=== PATIENT | female | born 2000 | race Caucasian/White ===

== ENCOUNTER 2019-10-13 18:01 | Inpatient (IN) | payer OTHER ==
[~2019-10-13 18:01] MED LIST: Iopamidol-370 76% 500 ML 1 ML ONE
[2019-10-13] MEDS ORDERED: Ondansetron ODT 4 MG TAB ONE (18:49)
[2019-10-13] MEDS ORDERED: Acetaminophen 500 MG TAB ONE (18:49)
[2019-10-13] MEDS ORDERED: Lorazepam 2 MG/ML VIAL ONE ×5 (18:52→21:55)
[2019-10-13] MEDS ORDERED: Rocuronium Bromide 10 MG/ML (10ML VIAL) ONE (19:12)
[2019-10-13] MEDS ORDERED: PROPOFOL 20 ML ONE (19:12)
[2019-10-13] MEDS ORDERED: Propofol 1,000 MG/100 ML VIAL IV ONE ×2 (19:30→23:16)
[2019-10-13] MEDS ORDERED: Fentanyl 100 MCG/2 ML VIAL ONE ×2 (19:31→20:39)
[2019-10-13] MEDS ORDERED: cefTRIAXone\\ROCEPHIN 2 GM VIAL ONE (20:19)
[2019-10-13] MEDS ORDERED: Vancomycin 1 GM/200 ML BAG ONE (20:19)
--- NOTE | 2019-10-13 20:41 | RAD ---
CHEST ONE VIEW: 10/13/19 HISTORY: Status post ET tube placement. FINDINGS: Portable supine chest demonstrates endotracheal tube at the level of the clavicles. Nasogastric tube terminates in the stomach. Normal cardiac silhouette. Pulmonary vessels and hilum are normal. Diminished lung volumes with accen tuation of the lung parenchyma. No pneumothorax on this supine projection. No consolidation or anay s. No osseous abnormalities. IMPRESSION: 1. Endotracheal and nasogastric tube as described above. 2. Hypoventilation with accentuation of lung parenchyma. Consider repeat chest radiograph with b bianca inspiration/ventilation. POS: PPP
[2019-10-13] MEDS ORDERED: Midazolam HCl 2 mg/2 ml Vial ONE (21:02)
[2019-10-13] MEDS ORDERED: fentaNYL Citrate/PF 2,000 MCG in Sodium Chloride 0.9% 60 ML IV SCH (22:15)
[2019-10-13 22:16] LABS: Anion Gap 11 mmol/L (10-20); Carbon Dioxide 24 mmol/L (22-29); Chloride 96 mmol/L (98-107); Potassium 3.8 mmol/L (3.5-5.1); Sodium 127 mmol/L (136-145)
[2019-10-13 22:17] LABS: BUN (Urea Nitrogen) 8 mg/dL (7.0-18.7); Calc. Creatinine Clearance 0 mL/min (70-130); Calcium 9.3 mg/dL (7.8-10.44); Estimated GFR-MDRD Greater than 90; Glucose 100 mg/dL (70-105)
[2019-10-13 22:42] LABS: Pregnancy Test - Urine (BHCG) Negative (Negative); Pregu Control Background? CLEAR/WHITE (CLR/WHITE); Pregu Control Bar Appear? YES (CONTROL BAR); Specific Gravity 1.025 (1.002-1.036)
[2019-10-13 22:43] LABS: Bacteria/HPF None Seen HPF (None Seen); Bilirubin Negative (Negative); Blood, Urine Trace (Negative); Clarity Clear (Clear); Glucose, Urine (Dipstick) Negative (Negative); Ketone, Urine Negative (Negative); Leukocyte Negative Leu/uL (Negative); Nitrite Negative (Negative); Protein, Urine (Dipstick) Negative (Neg-Trace); RBC/HPF 0-3 HPF (0-3); Specific Gravity, Urine 1.025 (1.002-1.036); Squamous Epithelial 0-3 HPF (0-3); Urobilinogen 0.2 mg/dL (Less than 2); WBC/HPF None Seen HPF (0-3); pH, Urine 6.5 (5.0-9.0)
[2019-10-13 23:03] LABS: #Basophils 0.1 thou/uL (0.0-0.2); #Eosinphils 0.2 thou/uL (0.0-0.7); #Lymphocytes 2.4 thou/uL (1.20-3.40); #Monocytes 0.5 thou/uL (0.11-0.59); #Neutrophils 3.9 thou/uL (1.40-6.50); %Basophils 1.2 % (0.0-1.0); %Eosinophils 3.3 % (0.0-10.0); %Lymphocytes 33.3 % (28.0-48.0); %Monocytes 7.2 % (0.0-4.0); %Neutrophils 55.1 % (31.0-61.0); Hemoglobin 11.3 g/dL (12.0-16.0); Mean Corpuscular HGB CONC 33.8 g/dL (32.0-36.0); Mean Corpuscular Hemoglobin 27.1 pg (25.0-35.0); Mean Corpuscular Volume 80.2 fL (78.0-98.0); Mean Platelet Volume 6.8 fL (7.4-10.4); Platelet Count 306 thou/uL (130-400); RBC Distribution Width 13.5 % (11.5-14.5); Red Blood Cell (RBC) Count 4.16 mill/uL (4.00-5.20); White Blood Cell (WBC) Count 7.1 thou/uL (4.8-10.8)
[2019-10-13 23:57] LABS: Actual Bicarbonate (HCO3a) 18.1 mEq/L (22-28); Analyzer IN Cardio ER; Base Excess (BEa) -3.6 mEq/L (-2.0 to +3.0); Calcium, Ionized (arterial) 1.11 mmol/L (1.12-1.30); Carboxyhemoglobin (COHb) 0.3 gm% (0.0-3.0); Hemoglobin (Hb) 10.8 g/dL (11.4-15.4); O2 Tension (PaO2), arterial 137.7 mmHg (80.0-100.0); Potassium - ABG Lab 3.57 mmol/L (3.70-5.30); pH, Arterial 7.51 (7.35-7.45)
[2019-10-13 23:58] LABS: CO2 Tension 23.2 mmHg (35.0-45.0); Puncture Site RRA
[2019-10-14] MEDS ORDERED: Propofol BOLUS 1,000 MG/100 ML VIAL IV PRN (00:52)
[2019-10-14] MEDS ORDERED: Morphine 2 MG/ML VIAL SLOW IVP PRN (00:52)
[2019-10-14] MEDS ORDERED: Fentanyl BOLUS 250 ML IVPB PRN (00:52)
[2019-10-14] MEDS ORDERED: DISCONTINUE PREVIOUS NARCOTIC PAIN MEDICATIONS AND BENZODIAZEPINES FS SCH (00:52)
[2019-10-14] MEDS ORDERED: Ondansetron ODT 4 MG TAB SL PRN (00:54)
[2019-10-14] MEDS ORDERED: Ondansetron PF 4 MG/2 ML Vial IVP PRN ×2 (00:54→00:59)
[2019-10-14] MEDS ORDERED: Labetalol HCl 100 MG/20 ML VIAL SLOW IVP PRN (00:59)
[2019-10-14] MEDS ORDERED: hydrALAZINE 20 MG/ML VIAL SLOW IVP PRN (00:59)
[2019-10-14] MEDS ORDERED: Promethazine HCl 12.5 MG in Sodium Chloride 0.9% 50 ML IVPB PRN (00:59)
[2019-10-14] MEDS ORDERED: Albuterol 200 PUFF (6.7GM INHALER) INH PRN (00:59)
[2019-10-14] MEDS: Lorazepam 2 MG/ML VIAL SLOW IVP PRN ×4 (00:59→20:06)
[2019-10-14] MEDS ORDERED: Electrolyte Replacement Protoc 1 EACH EACH IVPB ONE (01:00)
[2019-10-14] MEDS ORDERED: Ventilator Sedation Protocol 1 EACH FS SCH (01:00)
[2019-10-14] MEDS ORDERED: Insulin Regular 300 UNITS/3 ML VIAL SC PRN (01:00)
--- NOTE | 2019-10-14 01:11 | PDOC.HHP ---
Hospitalist HPI - History of Present Illness Seizure, status epilepticus History of Present Illness: Patient is a 19 year old female with PMH seizure disorder who presented to ED for R flank pain x 1.5 weeks, inability to urinate x 16 hours, pain was in R lower back, constant. The pain had reportedly worsened for 3 days before presentation with Tmax 101. She has seizure disorder on keppra, trileptal. She had a seizure 1 hour before arrival to ED, last seizure before that was a month or so. In the ED, she had 4 witnessed tonic clonic seizures, recieved 3mg ativan and 2g keppra, broad spectrum antibiotics, required intubation for status epilepticus, Dr Araujo consulted and recommended EEG, patient with Na 127 improved to 129, ABG w/ respiratory alkalosis. UA without obvious infection. CT A/P and CT head performed, CT head reportedly without acute findings however final reports pending, patient to be admitted to CCU for further workup and care. Hospitalist ROS - Review of Systems ROS unobtainable: due to endotracheal tube - Medication Medications: Active Medications Generic Name Dose Route Start Last Admin Trade Name Freq PRN Reason Stop Dose Admin Lorazepam 2 mg 10/14/19 00:52 10/14/19 00:59 Ativan SLOW IVP 11/13/19 00:52 2 mg Q1H PRN Administration Breakthrough agitation OXcarbazepine WedOct 13, 2019 22:24 ETELVINA Grayson Jordan tablet : Strength - 300 mg : ORAL Patient Dose: 3 tab(s) Oral 2 times a day. traZODone WedOct 13, 2019 22:26 ETELVINA Grayson Jordan tablet : Strength - 50 mg : ORAL Patient Dose: 1 tab(s) Oral once a day (at bedtime). NEEDED. levETIRAcetam oral WedOct 13, 2019 22:26 ETELVINA Grayson Jordan tablet : Strength - 500 mg : ORAL Patient Dose: 1 tab(s) Oral 2 times a day. atenolol WedOct 13, 2019 22:27 ETELVINA Grayson Jordan tablet : Strength - 25 mg : ORAL Patient Dose: 1 tab(s) Oral once a day (at bedtime). QUEtiapine WedOct 13, 2019 22:29 ETELVINA Grayson Jordan tablet : Strength - 25 mg : ORAL Patient Dose: 1 tab(s) Oral once a day (at bedtime). Cartia XT WedOct 13, 2019 22:30 ETELVINA Grayson Jordan capsule,extended release 24hr : Strength - 120 mg : ORAL Patient Dose: 1 cap(s) Oral once a day. sertraline WedOct 13, 2019 22:30 ETELVINA Grayson Jordan tablet : Strength - 50 mg : ORAL Patient Dose: 1 tab(s) Oral once a day. cephALEXin WedOct 13, 2019 22:31 ETELVINA Grayson Jordan capsule : Strength - 500 mg : ORAL Patient Dose: 1 cap(s) Oral 3 times a day. Hospitalist History - Past Medical History Other Medical History: SVT, seizure - Past Surgical History Other Surgical History: cyst removal - Family History Family History: reports: no pertinent history - Social History Smoking Status: Never smoker Alcohol: reports: None Drugs: reports: none - Exam General - other findings: intubated Eye: PERRL, anicteric sclera ENT: normocephalic atraumatic, no oropharyngeal lesions, moist mucosa Neck: supple, symmetric, no JVD, no thyromegaly, no lymphadenopathy, no carotid bruit Heart: RRR, no murmur, no gallops, no rubs, normal peripheral pulses Respiratory: CTAB, no wheezes, no rales, no ronchi, normal chest expansion, no tachypnea, normal percussion Gastrointestinal: soft, non-tender, non-distended, normal bowel sounds, no palpable masses, no hepatomegaly, no splenomegaly, no bruit Extremities: no cyanosis, no clubbing, no edema Skin: normal turgor, no lesions, no rashes Neurological: cranial nerve grossly intact, no focal deficits Neurological - other findings: intubated, sedated, no current seizure activity, rass -2 Musculoskeletal: normal tone, normal strength, no muscle wasting Psychiatric - other findings: unable to evaluate Hospitalist Results - Labs Result Diagrams: 10/13/19 18:50 10/13/19 18:50 Lab results: WBC 7.1 thou/uL (4.8-10.8) 10/13/19 18:50 Hgb 11.3 g/dL (12.0-16.0) L 10/13/19 18:50 Hct 33.3 % (36.0-47.0) L 10/13/19 18:50 MCV 80.2 fL (78.0-98.0) 10/13/19 18:50 Plt Count 306 thou/uL (130-400) 10/13/19 18:50 Neutrophils % 55.1 % (31.0-61.0) 10/13/19 18:50 ABG pH 7.51 (7.35-7.45) H 10/13/19 20:10 ABG pCO2 23.2 mmHg (35.0-45.0) L* 10/13/19 20:10 ABG pO2 137.7 mmHg (80.0-100.0) H 10/13/19 20:10 Sodium 127 mmol/L (136-145) L 10/13/19 18:50 Potassium 3.8 mmol/L (3.5-5.1) 10/13/19 18:50 Chloride 96 mmol/L (98-107) L 10/13/19 18:50 Carbon Dioxide 24 mmol/L (22-29) 10/13/19 18:50 BUN 8 mg/dL (7.0-18.7) 10/13/19 18:50 Creatinine 0.75 mg/dL (0.6-1.1) 10/13/19 18:50 Glucose 100 mg/dL (70-105) 10/13/19 18:50 Lactic Acid 0.9 mmol/L (0.5-2.2) 10/13/19 18:50 Calcium 9.3 mg/dL (7.8-10.44) 10/13/19 18:50 Urine Ketones Negative mg/dL (Negative) 10/13/19 21:30 Urine Blood Trace (Negative) A 10/13/19 21:30 Urine Nitrite Negative (Negative) 10/13/19 21:30 Ur Leukocyte Esterase Negative Amor/uL (Negative) 10/13/19 21:30 Urine RBC 0-3 HPF (0-3) 10/13/19 21:30 Urine WBC None Seen HPF (0-3) 10/13/19 21:30 Ur Squamous Epith Cells 0-3 HPF (0-3) 10/13/19 21:30 Urine Bacteria None Seen HPF (None Seen) 10/13/19 21:30 Additional comment: VITAL SIGNS WedOct 13, 2019 23:35 ETELVINA Grayson Jordan BP: 138/85 MAP: 102 Pulse: 89 Resp: 22 Pain: UTR O2 sat: 100 on (Ventilator) End-Tidal CO2: 34 Time: 10/13/2019 23:35. Hospitalist H&P A/P - Plan Plan: Patient is a 19 year old female with PMH seizure disorder who presented to ED for R flank pain x 1.5 weeks, inability to urinate x 16 hours, pain was in R lower back, constant. The pain had reportedly worsened for 3 days before presentation with Tmax 101. She has seizure disorder on keppra, trileptal. She had a seizure 1 hour before arrival to ED, last seizure before that was a month or so. In the ED, she had 4 witnessed tonic clonic seizures, recieved 3mg ativan and 2g keppra, broad spectrum antibiotics, required intubation for status epilepticus, Dr Araujo consulted and recommended EEG, patient with Na 127 improved to 129, ABG w/ respiratory alkalosis. UA without obvious infection. CT A/P and CT head performed, CT head reportedly without acute findings however final reports pending, patient to be admitted to CCU for further workup and care. # status epilepticus - admit to CCU, continue keppra IV, PRN ativan, seizure precautions, sedation protocol, consult pulmonary and neurology # flank pain - follow CT A/P final read and cultures, continue empiric vancomycin and zosyn # hyponatremia - improved already from 127 to 129, will continue to trend and continue IVF, consider nephrology consult if correcting too fast or slow. DVT/GI ppx
[2019-10-14] MEDS ORDERED: Electrolyte Replacement Protocol FS PRN (01:15)
[2019-10-14] MEDS: Sodium Chloride 0.9% 1,000 ML IV SCH ×2 (01:46→12:49)
[2019-10-14] MEDS: Propofol 1,000 MG/100 ML VIAL IV PRN ×6 (02:45→23:00)
[2019-10-14 03:56] LABS: #Eosinphils 0.1 thou/uL (0.0-0.7); #Lymphocytes 1.7 thou/uL (1.20-3.40); #Monocytes 0.5 thou/uL (0.11-0.59); #Neutrophils 3.8 thou/uL (1.40-6.50); %Basophils 0.2 % (0.0-1.0); %Eosinophils 1.6 % (0.0-10.0); %Lymphocytes 28.6 % (28.0-48.0); %Monocytes 7.4 % (0.0-4.0); %Neutrophils 62.2 % (31.0-61.0); Hemoglobin 10.7 g/dL (12.0-16.0); Mean Corpuscular HGB CONC 33.4 g/dL (32.0-36.0); Mean Corpuscular Hemoglobin 26.6 pg (25.0-35.0); Mean Corpuscular Volume 79.8 fL (78.0-98.0); Mean Platelet Volume 7.1 fL (7.4-10.4); Platelet Count 297 thou/uL (130-400); RBC Distribution Width 13.4 % (11.5-14.5); Red Blood Cell (RBC) Count 4.02 mill/uL (4.00-5.20); White Blood Cell (WBC) Count 6.1 thou/uL (4.8-10.8)
[2019-10-14] MEDS: Piperacillin/Tazobactam 3.375 GM in Sodium Chloride 0.9% 100 ML IVPB SCH ×4 (04:02→21:05)
[2019-10-14] MEDS: Vancomycin HCl 1.25 GM in Sodium Chloride 0.9% 250 ML 250 ML IVPB SCH ×2 (04:03→12:33)
[2019-10-14 05:50] LABS: Chloride 104 mmol/L (98-107); Potassium 3.9 mmol/L (3.5-5.1); Sodium 132 mmol/L (136-145)
[2019-10-14 05:51] LABS: Calcium 9.3 mg/dL (7.8-10.44); Glucose 107 mg/dL (70-105)
[2019-10-14 05:53] LABS: Anion Gap 15 mmol/L (10-20); Carbon Dioxide 17 mmol/L (22-29)
[2019-10-14 05:55] LABS: BUN (Urea Nitrogen) 4 mg/dL (7.0-18.7); Calc. Creatinine Clearance 201 mL/min (70-130); Estimated GFR-MDRD Greater than 90
[2019-10-14 05:57] LABS: Magnesium 2.2 mg/dL (1.7-2.2)
--- NOTE | 2019-10-14 08:54 | CT ---
CT BRAIN: Date: 10/13/2019 PROVIDED CLINICAL HISTORY: Status epilepticus. FINDINGS: No comparisons. The ventricular system appears normal in size and morphology. There is no evidence for intracranial h emorrhage or mass effect. The extracranial soft tissues and osseous structures demonstrate an unremar kable CT appearance. IMPRESSION: No evidence for intracranial hemorrhage or mass effect. POS: DONNIE
--- NOTE | 2019-10-14 08:59 | CT ---
CT ABDOMEN AND PELVIS WITH IV CONTRAST: Date: 10/13/2019 PROVIDED CLINICAL HISTORY: Right flank pain. FINDINGS: There are subsegmental atelectatic changes seen at each lung base. An enteric catheter is noted, tip of which terminates in the stomach. The solid abdominal organs demonstrate a normal CT appearance. There is no bowel dilatation, intraperitoneal fat stranding, free fluid, or free air apparent. A Plaza catheter is noted within the urinary bladder. There is tubular soft tissue density overlying the dorsum of the sacrum extending to the nba cleft, compatible with a pilonidal sinus. The osseous structures demonstrate no concerning lytic or blastic lesions. IMPRESSION: No evidence for an acute process. POS: DONNIE
[2019-10-14] MEDS ORDERED: Vancomycin 1 GM in Premix Bag 1 BAG IVPB SCH (09:00)
[2019-10-14] MEDS ORDERED: levETIRAcetam In NaCl (Iso-Os) 1,000 MG in Premix Bag 1 BAG IVPB SCH (09:00)
[2019-10-14] MEDS ORDERED: VALPROATE SODIUM IVPB SCH (12:00)
[2019-10-14] MEDS ORDERED: SODIUM CHLORIDE 0.9% IVPB SCH (12:00)
--- NOTE | 2019-10-14 12:02 | CON ---
DATE OF CONSULTATION: 10/13/2019 CONSULTING PHYSICIAN: Hospitalist Service. IMPRESSION: 1. Status epilepticus. 2. Infectious process, possibly secondary to abscess on her sacrum. PLAN: 1. Continue Keppra 1500 mg twice a day. 2. Add valproic acid after a loading dose of 2000mg continue 1000mg per day. 3. Continue to try to wean from the ventilator. HISTORY OF PRESENT ILLNESS: Ms. Rodriguez is a 19-year-old woman with a known history of seizure. She presented to the emergency room with complaints of her right flank pain. Her initial workup did not reveal a source of her symptoms. She had a temperature of 101. She began experiencing generalized tonic-clonic seizures. She was given some Ativan and an extra loading dose of Keppra of 2000 mg. She was intubated and transferred to the ICU this morning. An attempt was made to wean her from sedation. She apparently had recurrent generalized tonic-clonic seizures. She is now back on propofol drip. PAST MEDICAL HISTORY: Otherwise negative. ALLERGIES: INCLUDE DILANTIN AND LAMICTAL AMONG OTHERS. SOCIAL HISTORY: Unknown. FAMILY HISTORY: Unknown. REVIEW OF SYSTEMS: Could not be obtained due to sedation. PHYSICAL EXAMINATION: VITAL SIGNS: Stable. She is afebrile. HEENT: Pupils are equal and reactive. Conjunctivae are clear. She is orally intubated. Cranium, normocephalic and atraumatic. NECK: Supple. No lymphadenopathy noted. EXTREMITIES: No cyanosis or edema. ABDOMEN: Soft and nontender. SKIN: Clear other than the sacral ulcer. NEUROLOGIC: She opens her eyes to stimulation, but I could not get her to follow any commands. Tone appeared to be symmetric. She did not have any abnormal movements. Sensations seem to be intact. LABORATORY STUDIES: Reviewed. IMAGING STUDIES: CT of the brain without contrast was unremarkable. CT of the abdomen was unremarkable as well. SUMMARY: This is a 19-year-old woman with a known history of seizures, who presented with a fever and secondary status epilepticus. Her Trileptal has been held due to a lack of oral access. At this point, we will switch her over to valproic acid, which can be given intravenously. Maximize her Keppra dose and hopefully we can wean her. Job ID: [id number] [facility]
[2019-10-14 16:04] LABS: SARS-CoV-2 MS2 Positive; SARS-CoV-2 N Gene Negative; SARS-CoV-2 S Gene Negative; SARS-CoV-2 by NAA Not Detected (NotDetected); SARS-CoV-2 orf1ab Negative
--- NOTE | 2019-10-14 16:07 | CON ---
DATE OF CONSULTATION: HISTORY OF PRESENT ILLNESS: Martell Rodriguez is a 19-year-old female, who came to the ER yesterday with several complaints, right flank pain, temperature 101, frequent urination, and history of seizure disorders. In the ER, as per the ER physician's note, she continued to have multiple tonic-clonic activities, unresponsive to the usual medication. She got Keppra, vancomycin, fentanyl, Ativan. She then continued to seize and therefore was placed on Diprivan drip, intubated by the ER physician. She had a CT head that was negative. She had been recently in the hospital for similar problems. At this stage, not much additional information available. She had a CT of abdomen and pelvis, which showed no acute process. PAST SURGICAL HISTORY: Some kind of a cyst removed in the past. PAST MEDICAL HISTORY: History of SVT in the past. She has allergies to Lamictal, and latex. MEDICATIONS: Her home medicines supposed to include; 1. Trazodone 50. 2. Keppra 500 twice a day. 3. Zoloft 50. 4. Seroquel 25. 5. Trileptal 900. 6. Cardizem CD 120. 7. Atenolol 25. ALLERGIES: NOW APPEAR TO INCLUDE LATEX, DILANTIN, ADHESIVES, ZITHROMAX, IBUPROFEN, LAMICTAL. PHYSICAL EXAMINATION: GENERAL: She is sedated on the Diprivan. VITAL SIGNS: Blood pressure 110/70. Pulse 80, respirations 18 . CHEST: No wheezing. No crackles. CARDIAC: Normal S1 and S2. No gallops. ABDOMEN: No masses LABORATORY DATA: Last blood gas; PO2 was 137, pCO2 of 23, pH 7.51, rate of 14, and 40%. Lytes are normal. Sodium 132, improved. White count 6000. Her urine was negative. Cultures so far negative. IMPRESSION AND PLAN: 1. Status epilepticus, requiring intubation. 2. Febrile illness, flank pain, negative CT of the abdomen. 3. History of SVT. She is already on Zosyn and vancomycin, adequate antibiotics. She is already on Keppra. Await input from Neurology. We are going to try and hold off sedation. May consider extubation if it is okay with Neurology. This is a 45-minute critical care time. Job ID: [id number]
--- NOTE | 2019-10-14 18:11 | PDOC.HOSPP ---
- Subjective Subjective: pt remains sedated and remains intubated. - Objective Vital Signs & Weight: Vital Signs (12 hours) Temp Pulse Resp Pulse Ox 10/14/19 16:00 98.2 F 12 10/14/19 14:16 84 10/14/19 14:00 12 10/14/19 12:00 98.1 F 14 10/14/19 10:00 15 10/14/19 08:00 98.5 F 10/14/19 07:49 100 10/14/19 07:45 15 10/14/19 07:32 69 Weight Admit Weight 200 lb 9.92 oz Weight 200 lb 9.92 oz Most Recent Monitor Data Heart Rate from ECG 79 NIBP 134/73 NIBP BP-Mean 93 Respiration from ECG 19 SpO2 100 I&O: 10/13/19 10/14/19 10/15/19 06:59 06:59 06:59 Intake Total 1054 733.5 Output Total 350 2170 Balance 704 -1436.5 Result Diagrams: 10/14/19 03:08 10/14/19 03:08 Additional Labs: Accuchecks 10/14/19 10/13/19 17:59 19:12 POC Glucose 89 88 Hospitalist ROS - Medication Medications: Active Medications Generic Name Dose Route Start Last Admin Trade Name Freq PRN Reason Stop Dose Admin Sodium Chloride 1,000 mls @ 100 mls/hr 10/14/19 01:00 10/14/19 12:49 Normal Saline 0.9% IV 1,000 mls .Q10H GRZEGORZ Administration Piperacillin Sod/Tazobactam 100 mls @ 200 mls/hr 10/14/19 03:00 10/14/19 14: 14 Sod 3.375 gm/ Sodium Chloride IVPB 100 mls 0300,0900,1500,2100 GRZEGORZ Administration Vancomycin HCl 1.25 gm/ Sodium 250 mls @ 166.667 mls/hr 10/14/19 04:00 12:33 Chloride IVPB 250 mls 0400,1200,2000 GRZEGORZ Administration Lorazepam 2 mg 10/14/19 00:52 10/14/19 13:40 Ativan SLOW IVP 11/13/19 00:52 2 mg Q1H PRN Administration Breakthrough agitation Propofol 1,000 mg 10/14/19 00:52 10/14/19 16:32 Diprivan IV 11/13/19 00:52 1,000 mg INF PRN Administration TO ACHIEVE GOAL RASS Protocol Hosp A/P - Plan - Exam General - other findings: intubated Eye: PERRL, anicteric sclera ENT: normocephalic atraumatic, no oropharyngeal lesions, moist mucosa Neck: supple, symmetric, no JVD, no thyromegaly, no lymphadenopathy, no carotid bruit Heart: RRR, no murmur, no gallops, no rubs, normal peripheral pulses Respiratory: CTAB, no wheezes, no rales, no ronchi, normal chest expansion, no tachypnea, normal percussion Gastrointestinal: soft, non-tender, non-distended, normal bowel sounds, no palpable masses, no hepatomegaly, no splenomegaly, no bruit Extremities: no cyanosis, no clubbing, no edema Skin: normal turgor, no lesions, no rashes Neurological: cranial nerve grossly intact, no focal deficits Neurological - other findings: intubated, sedated, no current seizure activity, rass -2 Musculoskeletal: normal tone, normal strength, no muscle wasting Psychiatric - other findings: unable to evaluate Assessment and Plan: #Status Epilepiticus - remains intubated. #Hyponatremia - improved. #Flank Pain - UA/CT unremarkable. #Sacral Ulcer - POD 10/14/19 Pt remains intubated and sedated. Attempted to wean sedation today but developed grand mal seizure. Cont IV Keppra and Valproate. Appreciate Neurology and Pulmonology input. cont empiric IV abx and wound cares. Follow AM labs. DVT/GI ppx
[2019-10-14] MEDS ORDERED: Dextrose 5% in Water 1,000 ML IV PRN (18:47)
[2019-10-14] MEDS ORDERED: Dextrose 50% Abboject 50 ML SYRINGE SLOW IVP PRN (18:47)
[2019-10-14 19:19] LABS: Vancomycin, Trough 28.8 ug/mL
[2019-10-14] MEDS: Valproate Sodium 500 MG in Sodium Chloride 0.9% 100 ML IVPB SCH (19:47)
[2019-10-14] MEDS: levETIRAcetam In NaCl (Iso-Os) 1,500 MG in Premix Bag 1 BAG IVPB SCH (21:05)
[2019-10-14] MEDS: Vancomycin 1 GM in Premix Bag 1 BAG IVPB SCH (23:01)
[2019-10-15] MEDS: Piperacillin/Tazobactam 3.375 GM in Sodium Chloride 0.9% 100 ML IVPB SCH ×4 (02:43→21:59)
[2019-10-15] MEDS: Propofol 1,000 MG/100 ML VIAL IV PRN ×5 (02:43→16:47)
[2019-10-15 04:05] LABS: Anion Gap 12 mmol/L (10-20); BUN (Urea Nitrogen) Less than 4 mg/dL (7.0-18.7); Calc. Creatinine Clearance 192 mL/min (70-130); Calcium 8.7 mg/dL (7.8-10.44); Carbon Dioxide 20 mmol/L (22-29); Chloride 114 mmol/L (98-107); Estimated GFR-MDRD Greater than 90; Glucose 82 mg/dL (70-105); Magnesium 2.3 mg/dL (1.7-2.2); Potassium 4.2 mmol/L (3.5-5.1); Sodium 142 mmol/L (136-145)
[2019-10-15 04:49] LABS: Band 8 % (5-11); Eosinophils 3 % (0-10); Hemoglobin 10.4 g/dL (12.0-16.0); Lymphocytes 53 % (28-48); MDiff Complete? YES; Mean Corpuscular HGB CONC 32.8 g/dL (32.0-36.0); Mean Corpuscular Volume 82.3 fL (78.0-98.0); Mean Platelet Volume 6.6 fL (7.4-10.4); Monocytes 5 % (0-4); Neutrophil 31 % (31-61); Platelet Count 271 thou/uL (130-400); RBC Distribution Width 13.6 % (11.5-14.5); Red Blood Cell (RBC) Count 3.86 mill/uL (4.00-5.20); White Blood Cell (WBC) Count 5.7 thou/uL (4.8-10.8)
[2019-10-15] MEDS: Vancomycin 1 GM in Premix Bag 1 BAG IVPB SCH (06:13)
[2019-10-15] MEDS: Sodium Chloride 0.9% 1,000 ML IV SCH ×3 (06:14→19:53)
[2019-10-15] MEDS: levETIRAcetam In NaCl (Iso-Os) 1,500 MG in Premix Bag 1 BAG IVPB SCH ×2 (09:27→22:00)
[2019-10-15] MEDS: Valproate Sodium 500 MG in Sodium Chloride 0.9% 100 ML IVPB SCH ×2 (09:39→22:01)
--- NOTE | 2019-10-15 10:31 | PRG ---
DATE OF SERVICE: 10/15/2019 SUBJECTIVE: Martell Rodriguez remains intubated in the vent. She was started yesterday on a new antiseizure medication, valproate. She is already on Keppra. This morning, we turned her sedation off. She is not seizing anymore. OBJECTIVE: VITAL SIGNS: blood pressure 120/85, , respiratory rate 18, sats 100%. CHEST: No wheezing, no crackles. CARDIAC: Normal S1 and S2. No gallops. ABDOMEN: No masses. LABORATORY DATA: White count 5000, H and H 10 and 31, platelet count 271. Lytes are normal. C-reactive protein 1.66. IMPRESSION: Status epilepticus, respiratory failure, obesity, multiple allergies. We are going to give her some time to see whether she can be off sedation, not seizing. If she remains stable, we will try and extubate her. Hopefully, we can try and wean her off. She was started on broad-spectrum antibiotics. All cultures are negative. I will leave her on the Zosyn for the time being. One-half hour of critical care time. Job ID: [id number]
[2019-10-15] MEDS: Lorazepam 2 MG/ML VIAL SLOW IVP PRN (10:40)
[2019-10-15] MEDS: Lacosamide 50 MG in Sodium Chloride 0.9% 50 ML IVPB SCH (13:47)
--- NOTE | 2019-10-15 17:20 | PDOC.HOSPP ---
- Subjective Subjective: attempted to extubate today, but pt developed another grandmal seizure after weaning off of sedation. - Objective Vital Signs & Weight: Vital Signs (12 hours) Temp Pulse Resp Pulse Ox 10/15/19 16:00 99 F 18 10/15/19 14:46 66 10/15/19 14:00 19 10/15/19 12:00 98.8 F 17 100 10/15/19 10:29 92 10/15/19 10:00 13 10/15/19 08:00 98.3 F 14 100 10/15/19 07:29 58 L 10/15/19 06:00 13 Weight Admit Weight 200 lb 9.92 oz Weight 197 lb 5.019 oz Most Recent Monitor Data Heart Rate from ECG 56 NIBP 112/54 NIBP BP-Mean 73 Respiration from ECG 16 SpO2 100 I&O: 10/14/19 10/15/19 10/16/19 06:59 06:59 06:59 Intake Total 1054 3390.5 250 Output Total 350 4090 1065 Balance 704 -699.5 -815 Result Diagrams: 10/15/19 03:20 10/15/19 03:20 Additional Labs: Accuchecks 10/15/19 10/15/19 10/14/19 13:02 09:01 17:59 POC Glucose 89 82 89 Hospitalist ROS - Medication Medications: Active Medications Generic Name Dose Route Start Last Admin Trade Name Freq PRN Reason Stop Dose Admin Sodium Chloride 1,000 mls @ 100 mls/hr 10/14/19 01:00 10/15/19 08:37 Normal Saline 0.9% IV Not Given .Q10H GRZEGORZ Piperacillin Sod/Tazobactam 100 mls @ 200 mls/hr 10/14/19 03:00 10/15/19 14: 34 Sod 3.375 gm/ Sodium Chloride IVPB 100 mls 0300,0900,1500,2100 GRZEGORZ Administration Valproic Acid 500 mg/ Sodium 105 mls @ 105 mls/hr 10/14/19 21:00 10/15/19 09: 39 Chloride IVPB 105 mls Q12HR GRZEGORZ Administration Levetiracetam 1,500 mg/ Device 100 mls @ 200 mls/hr 10/14/19 21:00 10/15/19 09:27 IVPB 100 mls BID GRZEGORZ Administration Lacosamide 50 mg/ Sodium 55 mls @ 220 mls/hr 10/15/19 13:00 10/15/19 13:47 Chloride IVPB 55 mls 0100,1300 GRZEGORZ Administration Lorazepam 2 mg 10/14/19 00:52 10/14/19 20:06 Ativan SLOW IVP 11/13/19 00:52 2 mg Q1H PRN Administration Breakthrough agitation Lorazepam 2 mg 10/14/19 01:08 10/15/19 10:40 Ativan SLOW IVP 2 mg Q20M PRN Administration Seizures Propofol 1,000 mg 10/14/19 00:52 10/15/19 16:47 Diprivan IV 11/13/19 00:52 1,000 mg INF PRN Administration TO ACHIEVE GOAL RASS Protocol Hosp A/P - Plan - Exam General - other findings: intubated Eye: PERRL, anicteric sclera ENT: normocephalic atraumatic, no oropharyngeal lesions, moist mucosa Neck: supple, symmetric, no JVD, no thyromegaly, no lymphadenopathy, no carotid bruit Heart: RRR, no murmur, no gallops, no rubs, normal peripheral pulses Respiratory: CTAB, no wheezes, no rales, no ronchi, normal chest expansion, no tachypnea, normal percussion Gastrointestinal: soft, non-tender, non-distended, normal bowel sounds, no palpable masses, no hepatomegaly, no splenomegaly, no bruit Extremities: no cyanosis, no clubbing, no edema Skin: normal turgor, no lesions, no rashes Neurological: cranial nerve grossly intact, no focal deficits Neurological - other findings: intubated, sedated, no current seizure activity, rass -2 Musculoskeletal: normal tone, normal strength, no muscle wasting Psychiatric - other findings: unable to evaluate Assessment and Plan: #Status Epilepiticus - remains intubated. #Hyponatremia - normalized #Flank Pain - UA/CT unremarkable. #Sacral Ulcer - PoA 10/15/19 Pt developed another episode of seizure after weaning off of sedations. Neurology added Vimpat. Updated family member. Cont supportive cares, and further mgt as per specialists. Cont empiric abx. 10/14/19 Pt remains intubated and sedated. Attempted to wean sedation today but developed grand mal seizure. Cont IV Keppra and Valproate. Appreciate Neurology and Pulmonology input. cont empiric IV abx and wound cares. Follow AM labs. DVT/GI ppx
[2019-10-15] MEDS: Famotidine/PF 20 mg/2ml Vial SLOW IVP SCH (21:59)
[2019-10-16] MEDS: Lacosamide 50 MG in Sodium Chloride 0.9% 50 ML IVPB SCH ×2 (01:46→13:24)
[2019-10-16] MEDS: Piperacillin/Tazobactam 3.375 GM in Sodium Chloride 0.9% 100 ML IVPB SCH ×4 (03:31→20:00)
[2019-10-16] MEDS: Propofol 1,000 MG/100 ML VIAL IV PRN ×2 (03:31→07:59)
[2019-10-16] MEDS: Sodium Chloride 0.9% 1,000 ML IV SCH ×2 (03:32→15:25)
[2019-10-16 04:27] LABS: #Eosinphils 0.2 thou/uL (0.0-0.7); #Lymphocytes 2.8 thou/uL (1.20-3.40); #Monocytes 0.6 thou/uL (0.11-0.59); #Neutrophils 2.3 thou/uL (1.40-6.50); %Basophils 0.3 % (0.0-1.0); %Eosinophils 3.1 % (0.0-10.0); %Lymphocytes 47.4 % (28.0-48.0); %Monocytes 10.3 % (0.0-4.0); %Neutrophils 38.9 % (31.0-61.0); Hemoglobin 10.3 g/dL (12.0-16.0); Mean Corpuscular HGB CONC 31.9 g/dL (32.0-36.0); Mean Corpuscular Hemoglobin 26.5 pg (25.0-35.0); Mean Corpuscular Volume 82.9 fL (78.0-98.0); Platelet Count 246 thou/uL (130-400); RBC Distribution Width 13.9 % (11.5-14.5); Red Blood Cell (RBC) Count 3.88 mill/uL (4.00-5.20); White Blood Cell (WBC) Count 5.8 thou/uL (4.8-10.8)
[2019-10-16 05:06] LABS: Anion Gap 13 mmol/L (10-20); BUN (Urea Nitrogen) 5 mg/dL (7.0-18.7); Calc. Creatinine Clearance 192 mL/min (70-130); Calcium 8.7 mg/dL (7.8-10.44); Carbon Dioxide 17 mmol/L (22-29); Chloride 116 mmol/L (98-107); Estimated GFR-MDRD Greater than 90; Glucose 72 mg/dL (70-105); Magnesium 2.2 mg/dL (1.7-2.2); Potassium 3.7 mmol/L (3.5-5.1); Sodium 142 mmol/L (136-145)
[2019-10-16 06:32] LABS: Actual Bicarbonate (HCO3a) 18.1 mEq/L (22-28); Base Excess (BEa) -5.6 mEq/L (-2.0 to +3.0); Calcium, Ionized (arterial) 1.21 mmol/L (1.12-1.30); Carboxyhemoglobin (COHb) 0.2 gm% (0.0-3.0); Hemoglobin (Hb) 10.2 g/dL (11.4-15.4); Potassium - ABG Lab 3.51 mmol/L (3.70-5.30); pH, Arterial 7.41 (7.35-7.45)
[2019-10-16 06:34] LABS: Puncture Site RRA
[2019-10-16] MEDS: Enoxaparin Sodium 40 MG/0.4 ML SYRINGE SC SCH (08:18)
[2019-10-16] MEDS: Famotidine/PF 20 mg/2ml Vial SLOW IVP SCH ×2 (08:19→20:00)
--- NOTE | 2019-10-16 09:28 | RAD ---
PORTABLE CHEST: HISTORY: Respiratory distress. COMPARISON: 10/13/2019 exam. FINDINGS: Heart size within normal limits. Some slight increased density in the left parahilar region, some of which may just be related to rotation. Endotracheal and NG tubes are in satisfactory position. IMPRESSION: Relatively stable chest. POS: OFF
[2019-10-16] MEDS: levETIRAcetam In NaCl (Iso-Os) 1,500 MG in Premix Bag 1 BAG IVPB SCH (09:38)
--- NOTE | 2019-10-16 09:56 | PRG ---
DATE OF SERVICE: 10/16/2019 SUBJECTIVE: This morning, she is still sedated. OBJECTIVE: VITAL SIGNS: Pulse 82, respiratory rate 13, saturations 100%, blood pressure 140/95. CHEST: Decreased breath sounds. No wheezing. CARDIAC: Normal S1 and S2. No gallops. ABDOMEN: Soft. No masses. LABORATORY DATA: White count 5000. PO2 of 155, pCO2 of 29, and pH of 7.41, rate of 10, 30%, and PEEP of 5. Lytes are normal. X-ray was clear. ASSESSMENT: 1. Status epilepticus, requiring multiple medications. She is now on Keppra and valproic acid. Third drug added yesterday because she was seizing off the Diprivan, lacosamide. PLAN: Withhold sedation again this morning to see whether she is still seizing off the Diprivan. In the meantime, empiric antibiotics, supportive care. If not weanable today, we will start low-dose nutrition. One-half hour of critical time. Job ID: [id number]
[2019-10-16] MEDS: Valproate Sodium 500 MG in Sodium Chloride 0.9% 100 ML IVPB SCH (10:22)
[2019-10-16] MEDS ORDERED: DC Sedation Protocol FS ONE (10:36)
[2019-10-16] MEDS: Lorazepam 2 MG/ML VIAL SLOW IVP PRN ×3 (11:07→17:05)
--- NOTE | 2019-10-16 18:24 | PDOC.HOSPP ---
- Subjective Subjective: pt s/p extubate today and tolerated diet. however, she had 3 episode to tonic clonic type seizure activity. d/w neurology, her EEG was normal. May be psychogenic - Objective Vital Signs & Weight: Vital Signs (12 hours) Temp Pulse Resp Pulse Ox 10/16/19 16:00 98.8 F 10/16/19 12:00 98.5 F 97 10/16/19 10:35 87 22 H 99 10/16/19 10:00 17 10/16/19 08:04 52 L 10/16/19 08:00 98.2 F 14 98 Weight Admit Weight 200 lb 9.92 oz Weight 200 lb 13.458 oz Most Recent Monitor Data Heart Rate from ECG 122 NIBP 124/78 NIBP BP-Mean 93 Respiration from ECG 31 SpO2 98 I&O: 10/15/19 10/16/19 10/17/19 06:59 06:59 06:59 Intake Total 3390.5 4150 402 Output Total 4090 2365 1560 Balance -699.5 1785 -1158 Result Diagrams: 10/16/19 03:33 10/16/19 03:33 Additional Labs: Accuchecks 10/16/19 10/16/19 10/16/19 13:48 04:35 01:54 POC Glucose 77 68 L 72 10/15/19 10/15/19 22:22 17:01 POC Glucose 80 85 Hospitalist ROS - Medication Medications: Active Medications Generic Name Dose Route Start Last Admin Trade Name Freq PRN Reason Stop Dose Admin Enoxaparin Sodium 40 mg 10/16/19 09:00 10/16/19 08:18 Lovenox SC 40 mg 0900 GRZEGORZ Administration Famotidine 20 mg 10/15/19 21:00 10/16/19 08:19 Pepcid SLOW IVP 20 mg BID GRZEGORZ Administration Sodium Chloride 1,000 mls @ 100 mls/hr 10/14/19 01:00 10/16/19 15:25 Normal Saline 0.9% IV 1,000 mls .Q10H GRZEGORZ Administration Piperacillin Sod/Tazobactam 100 mls @ 200 mls/hr 10/14/19 03:00 10/16/19 15: 16 Sod 3.375 gm/ Sodium Chloride IVPB 100 mls 0300,0900,1500,2100 GRZEGORZ Administration Lorazepam 2 mg 10/14/19 01:08 10/16/19 16:30 Ativan SLOW IVP 2 mg Q20M PRN Administration Seizures Hosp A/P - Plan - Exam General - other findings: intubated Eye: PERRL, anicteric sclera ENT: normocephalic atraumatic, no oropharyngeal lesions, moist mucosa Neck: supple, symmetric, no JVD, no thyromegaly, no lymphadenopathy, no carotid bruit Heart: RRR, no murmur, no gallops, no rubs, normal peripheral pulses Respiratory: CTAB, no wheezes, no rales, no ronchi, normal chest expansion, no tachypnea, normal percussion Gastrointestinal: soft, non-tender, non-distended, normal bowel sounds, no palpable masses, no hepatomegaly, no splenomegaly, no bruit Extremities: no cyanosis, no clubbing, no edema Skin: normal turgor, no lesions, no rashes Neurological: cranial nerve grossly intact, no focal deficits Neurological - other findings: intubated, sedated, no current seizure activity, rass -2 Musculoskeletal: normal tone, normal strength, no muscle wasting Psychiatric - other findings: unable to evaluate Assessment and Plan: #Status Epilepiticus - s/p ext on 10/15 #Hyponatremia - normalized #Flank Pain - UA/CT unremarkable. #Sacral Ulcer - PoA 10/16/19 s/p extubated, nursing staff reported she had 3 episode of seizure activity since extubated. however, her EEG was normal. Discussed with neurology, Dr. Araujo, it could be psychogenic. Rec switch to her home medications: Tripleptal and Keppra. Monitor for now. 10/15/19 Pt developed another episode of seizure after weaning off of sedations. Neurology added Vimpat. Updated family member. Cont supportive cares, and further mgt as per specialists. Cont empiric abx. 10/14/19 Pt remains intubated and sedated. Attempted to wean sedation today but developed grand mal seizure. Cont IV Keppra and Valproate. Appreciate Neurology and Pulmonology input. cont empiric IV abx and wound cares. Follow AM labs. DVT/GI ppx
[2019-10-16] MEDS: OXcarbazepine 300 MG TAB PO SCH (20:01)
[2019-10-16 20:04] VITALS: BP 138/85
[2019-10-16] MEDS: levETIRAcetam 500 MG TAB PO SCH (20:04)
[2019-10-16] MEDS ORDERED: Atenolol 25 MG TAB PO SCH (21:00)
[2019-10-17] MEDS: Sodium Chloride 0.9% 1,000 ML IV SCH (00:08)
[2019-10-17] MEDS: Piperacillin/Tazobactam 3.375 GM in Sodium Chloride 0.9% 100 ML IVPB SCH ×2 (02:18→08:07)
[2019-10-17 04:01] LABS: #Eosinphils 0.2 thou/uL (0.0-0.7); #Lymphocytes 2.2 thou/uL (1.20-3.40); #Monocytes 0.4 thou/uL (0.11-0.59); #Neutrophils 2.4 thou/uL (1.40-6.50); %Basophils 0.3 % (0.0-1.0); %Eosinophils 3.5 % (0.0-10.0); %Neutrophils 46.1 % (31.0-61.0); Hemoglobin 9.5 g/dL (12.0-16.0); Mean Corpuscular HGB CONC 32.6 g/dL (32.0-36.0); Mean Corpuscular Hemoglobin 26.5 pg (25.0-35.0); Mean Corpuscular Volume 81.2 fL (78.0-98.0); Mean Platelet Volume 6.8 fL (7.4-10.4); Platelet Count 280 thou/uL (130-400); RBC Distribution Width 13.4 % (11.5-14.5); White Blood Cell (WBC) Count 5.2 thou/uL (4.8-10.8)
[2019-10-17 04:23] LABS: Anion Gap 16 mmol/L (10-20); BUN (Urea Nitrogen) Less than 4 mg/dL (7.0-18.7); Calc. Creatinine Clearance 219 mL/min (70-130); Calcium 8.6 mg/dL (7.8-10.44); Carbon Dioxide 19 mmol/L (22-29); Chloride 112 mmol/L (98-107); Estimated GFR-MDRD Greater than 90; Glucose 77 mg/dL (70-105); Potassium 3.5 mmol/L (3.5-5.1); Sodium 143 mmol/L (136-145)
[2019-10-17] MEDS ORDERED: Potassium Chloride 20 MEQ TAB PO SCH (05:00)
[2019-10-17] MEDS: Enoxaparin Sodium 40 MG/0.4 ML SYRINGE SC SCH (08:06)
[2019-10-17] MEDS: Famotidine/PF 20 mg/2ml Vial SLOW IVP SCH (08:07)
--- NOTE | 2019-10-17 08:26 | RAD ---
PORTABLE CHEST: HISTORY: Respiratory distress. COMPARISON: Prior day's exam. FINDINGS: The endotracheal and NG tubes have been removed. Heart size is borderline. No infiltrative lung pro cess seen. IMPRESSION: Borderline heart size, mild vascular prominence. No overt edema or focal infiltrates. POS: MANISHA
[2019-10-17] MEDS: levETIRAcetam 500 MG TAB PO SCH (08:58)
[2019-10-17] MEDS: OXcarbazepine 300 MG TAB PO SCH (08:58)
--- NOTE | 2019-10-17 11:06 | EEG ---
DATE OF SERVICE: 10/16/2019 DESCRIPTION OF THE RECORD: Waking background is a 9 hertz medium amplitude alpha frequency. Photic stimulation was unremarkable. The patient had some rhythmic movement reported, but on EEG, there appeared to be artifact primarily noted in the occipital chain suggesting that it was related to lead artifact from her movements rather than an epileptiform event. IMPRESSION: This is a normal awake EEG with behavior that does not appear to have an epileptiform origin. Job ID: [id number]
[2019-10-17 11:40] VITALS: TEMP 99.4
--- NOTE | 2019-10-17 12:21 | PRG ---
DATE OF SERVICE: 10/17/2019 SUBJECTIVE: Martell Rodriguez was extubated yesterday. No further seizure activity. She is awake, alert, and responsive. She is restarted back on all her home medicine. OBJECTIVE: VITAL SIGNS: Blood pressure 127/75, temperature 98, pulse respirations 18. CHEST: No wheezing. No crackles. CARDIAC: Normal S1, S2. ABDOMEN: No masses. LABORATORY DATA: X-rays show no obvious any infiltrates today. ASSESSMENT: 1. Respiratory failure//secondary to ,status epilepticus 2. Encephalopathy, multiple allergies, baseline bipolar disorder. PLAN: Discontinue antibiotics. Discontinue daily lab. Continue PT, supportive care. She can probably be transferred out of the ICU at a later date. Job ID: [id number] MTDD
[2019-10-17] MEDS ORDERED: Acetaminophen 325 MG TAB PO PRN (12:49)
[2019-10-17 13:39] VITALS: BMI 30.1
--- NOTE | 2019-10-17 17:22 | PDOC.HOSPP ---
- Subjective Subjective: s/p extubation, doing well on room air, tolerating diet c/o pain in the buttock area, at her wound - Objective Vital Signs & Weight: Vital Signs (12 hours) Temp 10/17/19 11:00 99.4 F 10/17/19 08:00 98.8 F Weight Admit Weight 200 lb 9.92 oz Weight 197 lb 15.602 oz Most Recent Monitor Data Heart Rate from ECG 106 NIBP 142/93 NIBP BP-Mean 109 Respiration from ECG 12 SpO2 99 I&O: 10/16/19 10/17/19 10/18/19 06:59 06:59 06:59 Intake Total 4150 3598 1186 Output Total 2365 3260 775 Balance 1785 338 411 Result Diagrams: 10/17/19 03:22 10/17/19 03:22 Additional Labs: Accuchecks 10/17/19 10/17/19 10/16/19 11:48 05:18 21:51 POC Glucose 92 75 85 Hosp A/P - Plan - Exam General - NAD, AAO x 3 Eye: PERRL, anicteric sclera ENT: normocephalic atraumatic, no oropharyngeal lesions, moist mucosa Neck: supple, symmetric, no JVD, no thyromegaly, no lymphadenopathy, no carotid bruit Heart: RRR, no murmur, no gallops, no rubs, normal peripheral pulses Respiratory: CTAB, no wheezes, no rales, no ronchi, normal chest expansion, no tachypnea, normal percussion Gastrointestinal: soft, non-tender, non-distended, normal bowel sounds, no palpable masses, no hepatomegaly, no splenomegaly, no bruit Extremities: no cyanosis, no clubbing, no edema Skin: normal turgor, no lesions, no rashes Neurological: cranial nerve grossly intact, no focal deficits Neurological - AAO x 3, no focal weakness Musculoskeletal: normal tone, normal strength, no muscle wasting Psychiatric - AAO x 3, normal affect Assessment and Plan: #Status Epilepiticus - s/p ext on 10/15 #Hyponatremia - normalized #Flank Pain - UA/CT unremarkable. #Sacral Ulcer - PoA 10/17/2019 tolerating reg diet, no further seizure noted. Pt is think about leaving AMA, recommend against it as she is not medically ready for discharge. transfer to [facility], monitor. cont home meds supportive cares. add prn Tylenol for pain. 10/16/19 s/p extubated, nursing staff reported she had 3 episode of seizure activity since extubated. however, her EEG was normal. Discussed with neurology, Dr. Araujo, it could be psychogenic. Rec switch to her home medications: Tripleptal and Keppra. Monitor for now. 10/15/19 Pt developed another episode of seizure after weaning off of sedations. Neurology added Vimpat. Updated family member. Cont supportive cares, and further mgt as per specialists. Cont empiric abx. 10/14/19 Pt remains intubated and sedated. Attempted to wean sedation today but developed grand mal seizure. Cont IV Keppra and Valproate. Appreciate Neurology and Pulmonology input. cont empiric IV abx and wound cares. Follow AM labs. DVT/GI ppx
--- NOTE | 2019-10-17 18:03 | DIS ---
DATE OF ADMISSION: 10/13/2019 DATE OF DISCHARGE: 10/17/2019 DISCHARGE DIAGNOSES: 1. Status epilepticus, status post extubated on 10/16/2019. 2. Hyponatremia, resolved. 3. Flank pain. UA, CT abdomen and pelvis were unremarkable. 4. Chronic sacral wound, present on admission. CONSULTATIONS: 1. Pulmonology, Dr. Cliff Perla. 2. Neurology, Dr. Mayank Araujo. PROCEDURES: Normal awake EEG with behavior that does not appear to have an epileptiform origin. HISTORY OF PRESENT ILLNESS AND BRIEF HOSPITAL COURSE: The patient is a 19-year-old female, who has significant past medical histories diagnosed with epilepsy last year, who presented to the ED with complaining of flank pain intermittently for one and half weeks. She also complained of low back pain. She had a chronic wound. The patient stated she had a cyst removed, and experiencing with nonhealing wound for the past year, she follows up with her surgeons in [place]. At any rate, the patient had a seizures about 1 hour before arrival to the ED. In the ED, she had multiple tonic clonic type of seizures. She was given Ativan without cessations of seizure activity. The patient was subsequently required intubation for airway protection for her status epilepticus. She was loaded with Keppra and valproic IV as recommended by Neurology. She was subsequently admitted to hospice service in ICU. Pulmonology was consulted for vent management. Despite the fact that she is on 2 antiepileptic medications, she is due to have seizure activities. Neurology subsequently added Vimpat. Her seizure appears to be controlled. Interestingly, her EEG was normal. Discussed with Neurology, psychogenic in origin. All her IV medication was discontinued and resumed her home medication, which is Keppra and Trileptal as recommended by Neurology. She was extubated and doing well. Plan was to transfer her out of ICU later today and monitor her progress. However, the patient requests to be signed out AMA. I was informed by the nursing staff the risks of signing out AMA has been discussed with the patient in detail. However, she is adamant to leave AMA. She has verbalized understanding the risks of leaving AMA. DISPOSITION: The patient left AMA. Job ID: [id number]
== END 2019-10-17 14:01 | disposition left against medical advice (07) | DRG 100 ==
LOC: ERS 18:01 → CCU 22:44
PROVIDERS: ADMIT Internal Medicine; ATTEND Internal Medicine
PROC: 0BH17EZ Insertion of Endotracheal Airway into Trachea, Via Natural or Artificial Opening (ICD-10-PCS; principal; 2019-10-13)
PROC: 5A1945Z Respiratory Ventilation, 24-96 Consecutive Hours (ICD-10-PCS; 2019-10-13)
DX: G40.401 Other generalized epilepsy and epileptic syndromes, not intractable, with status epilepticus (principal); J96.01 Acute respiratory failure with hypoxia; E87.0 Hyperosmolality and hypernatremia; Z53.29 Procedure and treatment not carried out because of patient's decision for other reasons; L89.159 Pressure ulcer of sacral region, unspecified stage; Z88.8 Allergy status to other drugs, medicaments and biological substances; Z91.040 Latex allergy status; Z79.899 Other long term (current) drug therapy
CPT/HCPCS: 31500; 36415; 36416; 51702; 70450; 71045; 74177; 80048; 80164; 80202; 81003; 81015; 81025; 82805; 83605; 83735; 85025; 85652; 86140; 87040; 87086; 87635; 93005; 94002; 94003; 95816; 95819; 96365; 96366; 96367; 96374; 96375; 96376; 99292; J0696; J1650; J1953; J2060; J2250; J2543; J2704; J3010; J3370; J3490; J7050; Q0162; Q9967; S0028; U0003

== ENCOUNTER 2019-10-17 23:17 | Emergency (ER) | payer SELFPAY ==
[2019-10-17] MEDS ORDERED: Lorazepam 2 MG/ML VIAL ONE (23:24)
[2019-10-18 00:39] LABS: Barbiturates Screen Not Detected (NotDetected); Benzodiazepine Screen Detected (NotDetected); Medtox Control Line Valid? VALID (VALID); Medtox Reader # READER 4; Methadone Not Detected (NotDetected); Oxycodone Screen Not Detected (NotDetected); Tricyclic Screen Not Detected (NotDetected)
[2019-10-18 00:40] LABS: Amphetamine Not Detected (NotDetected); Cocaine Metabolite Screen Not Detected (NotDetected); Methamphetamine Not Detected (NotDetected); Opiate Screen Not Detected (NotDetected); Phencyclidine (PCP) Not Detected (NotDetected); THC/Cannabinoid Screen Not Detected (NotDetected)
[2019-10-18 00:46] LABS: #Basophils 0.1 thou/uL (0.0-0.2); #Eosinphils 0.1 thou/uL (0.0-0.7); #Lymphocytes 2.2 thou/uL (1.20-3.40); #Monocytes 0.5 thou/uL (0.11-0.59); #Neutrophils 2.1 thou/uL (1.40-6.50); %Basophils 1.1 % (0.0-1.0); %Eosinophils 2.8 % (0.0-10.0); %Lymphocytes 44.6 % (28.0-48.0); %Monocytes 9.2 % (0.0-4.0); %Neutrophils 42.3 % (31.0-61.0); Hemoglobin 10.1 g/dL (12.0-16.0); Mean Corpuscular HGB CONC 32.9 g/dL (32.0-36.0); Mean Corpuscular Hemoglobin 27.3 pg (25.0-35.0); Mean Corpuscular Volume 82.8 fL (78.0-98.0); Mean Platelet Volume 6.3 fL (7.4-10.4); Platelet Count 274 thou/uL (130-400); RBC Distribution Width 13.2 % (11.5-14.5)
[2019-10-18 01:06] LABS: BHCG - Serum Negative (NEGATIVE); Pregs Control Background? CLEAR/WHITE (CLR/WHITE); Pregs Control Bar Appear? YES (CONTROL BAR)
[2019-10-18 01:13] LABS: ALT (SGPT) 14 U/L (8-55); AST (SGOT) 21 U/L (5-34); Albumin 3.9 g/dL (3.5-5.0); Alkaline Phosphatase 84 U/L (40-100); Anion Gap 14 mmol/L (10-20); BUN (Urea Nitrogen) Less than 4 mg/dL (7.0-18.7); Bilirubin, Total 0.2 mg/dL (0.2-1.2); Calc. Creatinine Clearance 0 mL/min (70-130); Calcium 8.9 mg/dL (7.8-10.44); Carbon Dioxide 19 mmol/L (22-29); Chloride 113 mmol/L (98-107); Estimated GFR-MDRD Greater than 90; Globulin 2.8 g/dL (2.4-3.5); Glucose 99 mg/dL (70-105); Magnesium 1.7 mg/dL (1.7-2.2); Potassium 3.5 mmol/L (3.5-5.1); Protein, Total 6.7 g/dL (6.0-8.3); Sodium 142 mmol/L (136-145)
[2019-10-18 01:14] LABS: Acetaminophen Less than 6.0 mcg/mL (10.0-30.0); Alcohol Less than 10 mg/dL (Less than 10); Salicylate Less than 8.0 mg/dL (15.0-30.0)
== END 2019-10-18 01:33 | disposition home or self-care (01) ==
LOC: ERS 23:17
DX: R56.9 Unspecified convulsions (principal)
CPT/HCPCS: 36415; 80177; 80306; 80307; 83605; 83735; 84703; 93005; 96361; 96365; 96375; J1953; J2060

== ENCOUNTER 2019-11-30 17:07 | Inpatient (IN) | payer OTHER, SELFPAY ==
[2019-11-30] MEDS ORDERED: Lorazepam 2 MG/ML VIAL ONE (17:14)
[2019-11-30] MEDS ORDERED: Morphine 4 MG/ML VIAL ONE ×2 (17:23→19:51)
[2019-11-30 17:41] LABS: #Eosinphils 0.1 thou/uL (0.0-0.7); #Lymphocytes 3.1 thou/uL (1.20-3.40); #Monocytes 0.8 thou/uL (0.11-0.59); #Neutrophils 5.8 thou/uL (1.40-6.50); %Basophils 0.3 % (0.0-1.0); %Eosinophils 1.2 % (0.0-10.0); %Lymphocytes 31.4 % (28.0-48.0); %Neutrophils 59.1 % (31.0-61.0); Mean Corpuscular HGB CONC 33.3 g/dL (32.0-36.0); Mean Corpuscular Hemoglobin 26.2 pg (25.0-35.0); Mean Corpuscular Volume 78.5 fL (78.0-98.0); Mean Platelet Volume 6.8 fL (7.4-10.4); Platelet Count 397 thou/uL (130-400); RBC Distribution Width 13.3 % (11.5-14.5); Red Blood Cell (RBC) Count 4.22 mill/uL (4.00-5.20); White Blood Cell (WBC) Count 9.8 thou/uL (4.8-10.8)
[2019-11-30] MEDS ORDERED: Midazolam HCl 2 mg/2 ml Vial ONE (17:46)
[2019-11-30] MEDS ORDERED: Atropine Sulfate 1 mg/10 ml Syringe ONE (18:03)
[2019-11-30 18:05] LABS: ALT (SGPT) 14 U/L (8-55); AST (SGOT) 16 U/L (5-34); Albumin 4.4 g/dL (3.5-5.0); Alkaline Phosphatase 119 U/L (40-100); Anion Gap 19 mmol/L (10-20); BUN (Urea Nitrogen) 9 mg/dL (7.0-18.7); Bilirubin, Total 0.2 mg/dL (0.2-1.2); Calc. Creatinine Clearance 0 mL/min (70-130); Calcium 9.2 mg/dL (7.8-10.44); Carbon Dioxide 15 mmol/L (22-29); Chloride 106 mmol/L (98-107); Estimated GFR-MDRD Greater than 90; Globulin 3.5 g/dL (2.4-3.5); Glucose 122 mg/dL (70-105); Potassium 3.4 mmol/L (3.5-5.1); Protein, Total 7.9 g/dL (6.0-8.3); Sodium 137 mmol/L (136-145)
[2019-11-30 18:05] LABS: Lactic Acid 7.2 mmol/L (0.5-2.2)
[2019-11-30] MEDS ORDERED: levETIRAcetam in NS 200 ML ONE (18:17)
[2019-11-30 19:56] LABS: BHCG - Serum Negative (NEGATIVE); Pregs Control Background? CLEAR/WHITE (CLR/WHITE); Pregs Control Bar Appear? YES (CONTROL BAR)
[2019-11-30 20:47] LABS: Amphetamine Not Detected (NotDetected); Barbiturates Screen Not Detected (NotDetected); Benzodiazepine Screen Detected (NotDetected); Cocaine Metabolite Screen Not Detected (NotDetected); Medtox Control Line Valid? VALID (VALID); Medtox Reader # READER 4; Methadone Not Detected (NotDetected); Methamphetamine Not Detected (NotDetected); Opiate Screen Detected (NotDetected); Oxycodone Screen Not Detected (NotDetected); Phencyclidine (PCP) Not Detected (NotDetected); THC/Cannabinoid Screen Not Detected (NotDetected); Tricyclic Screen Not Detected (NotDetected)
[2019-11-30] MEDS ORDERED: OXcarbazepine 300 MG TAB PO SCH (21:15)
[2019-11-30 21:18] LABS: Acetaminophen Less than 6.0 mcg/mL (10.0-30.0); Alcohol Less than 10 mg/dL (Less than 10); CK (CPK) 36 U/L (29-168); Salicylate Less than 8.0 mg/dL (15.0-30.0)
[2019-11-30] MEDS ORDERED: Acetaminophen 325 MG TAB PO PRN ×2 (22:41→23:00)
[2019-11-30] MEDS ORDERED: Sodium Chloride 0.9% 1,000 ML IV SCH (22:45)
--- NOTE | 2019-11-30 22:54 | PDOC.HHP ---
Hospitalist HPI - History of Present Illness Seizures History of Present Illness: -year-old female with a history of seizure disorder presented emergency department with a complaint of multiple seizures. Patient reportedly had about 9 episodes of seizures. According to the ED physician she had 9 more episodes in the ED and his mental status was considered to be clear in between seizure episodes. Episodes are associated with transient tachycardia with heart rate up to 150. She was given a dose of 2 g IV Keppra, 2 g lorazepam, 4 g midazolam, followed by her oral oxcarbazepine 900 mg. Patient was groggy during my examination in the ED. She has had EEGs in the past which demonstrated normal awake EEG and no epileptiform discharge questioning her seizure episodes. Patient has lactic acidosis and had low-grade fever in the ED and therefore meets criteria for sepsis. Prolactin is within normal limits. Patient is admitted for further management. Hospitalist ROS - Review of Systems ROS unobtainable: due to mental status - Medication Medications: Medication Instructions Recorded Confirmed Type OXcarbazepine [Trileptal] 900 mg PO BID 10/14/19 12/01/19 History QUEtiapine Fumarate [SEROquel] 25 mg PO HS PRN 10/14/19 12/01/19 History Sertraline HCl 50 mg PO DAILY 10/14/19 12/01/19 History levETIRAcetam [Levetiracetam] 500 mg PO BID 10/14/19 12/01/19 History traZODone HCl [Trazodone HCl] 50 mg PO HS PRN 10/14/19 12/01/19 History Atenolol 25 mg PO HS 12/01/19 12/01/19 History Diltiazem HCl [Cardizem] 120 mg PO DAILY 12/01/19 12/01/19 History Hospitalist History - Past Medical History Other Medical History: Seizure episodes, SVT. - Past Surgical History Other Surgical History: Cyst removal - Family History Other Family History: Reviewed and noncontributory - Social History Smoking Status: Never smoker Alcohol: reports: None Drugs: reports: none - Exam General Appearance: NAD General - other findings: Somnolent Eye: PERRL ENT: normocephalic atraumatic, no oropharyngeal lesions, moist mucosa Neck: supple, symmetric, no JVD, no thyromegaly Heart: RRR (Tachycardic), no murmur, no gallops Respiratory: CTAB, no wheezes, no rales, no ronchi Gastrointestinal: soft, non-tender, non-distended, normal bowel sounds Extremities: no cyanosis, no edema Skin: normal turgor, no rashes Neurological: cranial nerve grossly intact, no weakness, no focal deficits Musculoskeletal: normal tone, normal strength Psychiatric: somnolent Hospitalist Results - Labs Result Diagrams: 12/01/19 04:41 12/01/19 04:41 Lab results: WBC 9.8 thou/uL (4.8-10.8) 11/30/19 17:22 Hgb 11.0 g/dL (12.0-16.0) L 11/30/19 17:22 Hct 33.1 % (36.0-47.0) L 11/30/19 17:22 MCV 78.5 fL (78.0-98.0) 11/30/19 17:22 Plt Count 397 thou/uL (130-400) 11/30/19 17:22 Neutrophils % 59.1 % (31.0-61.0) 11/30/19 17:22 Sodium 137 mmol/L (136-145) 11/30/19 17:22 Potassium 3.4 mmol/L (3.5-5.1) L 11/30/19 17:22 Chloride 106 mmol/L (98-107) 11/30/19 17:22 Carbon Dioxide 15 mmol/L (22-29) L 11/30/19 17:22 BUN 9 mg/dL (7.0-18.7) 11/30/19 17:22 Creatinine 0.80 mg/dL (0.6-1.1) 11/30/19 17:22 Glucose 122 mg/dL (70-105) H 11/30/19 17:22 Lactic Acid 7.2 mmol/L (0.5-2.2) H* 11/30/19 17:23 Calcium 9.2 mg/dL (7.8-10.44) 11/30/19 17:22 Total Bilirubin 0.2 mg/dL (0.2-1.2) 11/30/19 17:22 AST 16 U/L (5-34) 11/30/19 17:22 ALT 14 U/L (8-55) 11/30/19 17:22 Alkaline Phosphatase 119 U/L (40-100) H 11/30/19 17:22 Creatine Kinase 36 U/L (29-168) 11/30/19 19:20 Troponin I Less than 0.010 ng/mL (< 0.028) 11/30/19 19:20 Serum Total Protein 7.9 g/dL (6.0-8.3) 11/30/19 17:22 Albumin 4.4 g/dL (3.5-5.0) 11/30/19 17:22 Hospitalist H&P A/P - Problem (1) Seizure-like activity Code(s): R56.9 - UNSPECIFIED CONVULSIONS Status: Acute (2) Sinus tachycardia Code(s): R00.0 - TACHYCARDIA, UNSPECIFIED Status: Acute (3) Sepsis Code(s): A41.9 - SEPSIS, UNSPECIFIED ORGANISM Status: Acute - Plan Plan: Admit to telemetry. Continue patient home antiepileptic. IV Ativan PRN for breakthrough seizures. Consult to neurology Supportive measures with IV hydration given lactic acidosis. Serial lactate Check UA. Obtain blood cultures. Empiric antibiotics-IV vancomycin and cefepime.
[2019-11-30] MEDS ORDERED: Ondansetron PF 4 MG/2 ML Vial IVP PRN (23:00)
[2019-11-30] MEDS ORDERED: Ondansetron ODT 4 MG TAB SL PRN (23:00)
[2019-11-30] MEDS: Cefepime 1 GM in Sodium Chloride 0.9% 100 ML IVPB SCH (23:39)
[2019-11-30] MEDS: Sodium Chloride 0.9% 1,000 ML IV SCH (23:40)
[2019-12-01] MEDS: Lorazepam 2 MG/ML VIAL SLOW IVP PRN ×2 (00:49→16:16)
[2019-12-01 01:12] VITALS: BMI 33.5
[2019-12-01 02:21] LABS: Bacteria/HPF None Seen HPF (None Seen); Bilirubin Negative (Negative); Blood, Urine Negative (Negative); Clarity Clear (Clear); Glucose, Urine (Dipstick) Normal (Negative); Ketone, Urine Negative (Negative); Leukocyte Negative Leu/uL (Negative); Nitrite Negative (Negative); Protein, Urine (Dipstick) Negative (Neg-Trace); RBC/HPF 0-3 HPF (0-3); Specific Gravity, Urine 1.012 (1.002-1.036); Squamous Epithelial 0-3 HPF (0-3); Urobilinogen Normal mg/dL (Less than 2); WBC/HPF 0-3 HPF (0-3)
[2019-12-01 02:26] LABS: Urine Culture Reflex No No
[2019-12-01] MEDS ORDERED: diphenhydrAMINE 50 MG/ML VIAL IVP SCH (03:00)
[2019-12-01 04:55] LABS: #Eosinphils 0.1 thou/uL (0.0-0.7); #Lymphocytes 2.7 thou/uL (1.20-3.40); #Monocytes 0.5 thou/uL (0.11-0.59); #Neutrophils 3.1 thou/uL (1.40-6.50); %Basophils 0.4 % (0.0-1.0); %Eosinophils 1.5 % (0.0-10.0); %Lymphocytes 42.3 % (28.0-48.0); %Monocytes 7.5 % (0.0-4.0); %Neutrophils 48.4 % (31.0-61.0); Hemoglobin 9.4 g/dL (12.0-16.0); Mean Corpuscular HGB CONC 32.7 g/dL (32.0-36.0); Mean Corpuscular Hemoglobin 26.1 pg (25.0-35.0); Mean Corpuscular Volume 79.8 fL (78.0-98.0); Mean Platelet Volume 6.6 fL (7.4-10.4); Platelet Count 307 thou/uL (130-400); RBC Distribution Width 13.1 % (11.5-14.5); Red Blood Cell (RBC) Count 3.61 mill/uL (4.00-5.20); White Blood Cell (WBC) Count 6.3 thou/uL (4.8-10.8)
[2019-12-01 05:16] LABS: Anion Gap 11 mmol/L (10-20); BUN (Urea Nitrogen) 4 mg/dL (7.0-18.7); Calc. Creatinine Clearance 216 mL/min (70-130); Calcium 8.3 mg/dL (7.8-10.44); Carbon Dioxide 21 mmol/L (22-29); Chloride 110 mmol/L (98-107); Estimated GFR-MDRD Greater than 90; Glucose 102 mg/dL (70-105); Potassium 3.5 mmol/L (3.5-5.1); Sodium 138 mmol/L (136-145)
[2019-12-01] MEDS ORDERED: traZODone HCl 50 MG TAB PO PRN (08:10)
[2019-12-01] MEDS ORDERED: Vancomycin 1 GM in Premix Bag 1 BAG IVPB SCH (09:00)
[2019-12-01] MEDS ORDERED: levETIRAcetam 500 MG TAB PO SCH ×2 (09:00→21:00)
[2019-12-01] MEDS: OXcarbazepine 300 MG TAB PO SCH ×2 (09:49→21:13)
[2019-12-01] MEDS: Enoxaparin Sodium 40 MG/0.4 ML SYRINGE SC SCH (09:52)
[2019-12-01] MEDS: Sodium Chloride 0.9% 1,000 ML IV SCH ×2 (09:54→23:36)
[2019-12-01] MEDS ORDERED: Ondansetron PF 4 MG/2 ML Vial IVP PRN (12:02)
--- NOTE | 2019-12-01 12:49 | EEG ---
DATE OF SERVICE: 12/01/2019 This EEG was performed using 24-channel [employer] video digital EEG machine with 24-disk electrodes. This was an extended 2 hours 4 minutes of inpatient video EEG recording. Digital analysis of the EEG was done for spike and seizure detection, which revealed no abnormalities. BACKGROUND: The posterior background rhythm is 10 to 12 hertz. Low amplitude EEG with excessive beta activity intermixed with the background. HYPERVENTILATION: Not performed. PHOTIC STIMULATION: Not performed. SLEEP: Drowsiness and sleep are observed. EEG DIAGNOSIS: Normal awake, drowsy, and sleep EEG. Job ID: [id number]
[2019-12-01 12:57] LABS: SARS-CoV-2 MS2 Positive; SARS-CoV-2 N Gene Negative; SARS-CoV-2 S Gene Negative; SARS-CoV-2 by NAA Not Detected (NotDetected); SARS-CoV-2 orf1ab Negative
[2019-12-01] MEDS: Cefepime 1 GM in Sodium Chloride 0.9% 100 ML IVPB SCH (13:16)
[2019-12-01] MEDS ORDERED: Vancomycin 1.5 GRAM/300 ML BAG 1.5 GM in Premix Bag 1 BAG IVPB SCH (14:00)
--- NOTE | 2019-12-01 15:33 | PDOC.HOSPP ---
- Subjective Encounter Date: 12/01/19 Encounter Time: 15:29 Subjective: Ms. Rodriguez was seen today in follow-up seizure disorder. When asked how is she doing today she says " I feel like I am going to have a seizure". She feels like no one understands her situation. She wants to see a chief operator, because she says there is a cardiac component to her seizures. She says she no longer sees the Specialist at [facility], because she is now on Medicaid, and they don't take her insurance. - Objective Vital Signs & Weight: Vital Signs (12 hours) Temp Pulse Resp BP BP Pulse Ox 12/01/19 11:52 98.1 F 103 H 20 141/63 H 98 12/01/19 09:50 90 139/77 12/01/19 08:31 97.7 F 108 H 12 125/76 100 12/01/19 04:00 98.1 F 103 H 23 H 119/66 100 Weight Admit Weight 201 lb 6.4 oz Weight 201 lb 6.4 oz I&O: 11/30/19 12/01/19 12/02/19 06:59 06:59 06:59 Intake Total 240 Balance 240 Result Diagrams: 12/01/19 04:41 12/01/19 04:41 Hospitalist ROS - Medication Medications: Active Medications Generic Name Dose Route Start Last Admin Trade Name Freq PRN Reason Stop Dose Admin Acetaminophen 650 mg 11/30/19 22:41 12/01/19 14:30 Acetaminophen 325 Mg Tab PO 650 mg Q4H PRN Administration Headache/Fever/Mild Pain (1-3) Diltiazem HCl 120 mg 12/01/19 09:00 12/01/19 09:50 Diltiazem Cd 120 Mg Cap PO 120 mg DAILY GRZEGORZ Administration Enoxaparin Sodium 40 mg 12/01/19 09:00 12/01/19 09:52 Enoxaparin Sodium 40 Mg/0.4 Ml Syringe SC Not Given 0900 GRZEGORZ Cefepime HCl 1 gm/ Sodium 100 mls @ 200 mls/hr 11/30/19 23:59 12/01/19 13:16 Chloride IVPB 100 mls 1200,2359 GRZEGORZ Administration Sodium Chloride 1,000 mls @ 125 mls/hr 11/30/19 23:09 12/01/19 09:54 Normal Saline 0.9% IV 1,000 mls .Q8H GRZEGORZ Administration Vancomycin HCl 1.5 gm/ Device 300 mls @ 200 mls/hr 12/01/19 14:00 12/01/19 14:25 IVPB 300 mls 0200,1400 GRZEGORZ Administration Lorazepam 2 mg 11/30/19 22:41 12/01/19 00:49 Lorazepam 2 Mg/Ml Vial SLOW IVP 2 mg Q4H PRN Administration Seizures Oxcarbazepine 900 mg 12/01/19 09:00 12/01/19 09:49 Oxcarbazepine 300 Mg Tab PO 900 mg BID GRZEGORZ Administration Sertraline HCl 50 mg 12/01/19 09:00 12/01/19 09:48 Sertraline Hcl 100 Mg Tab PO 50 mg DAILY GRZEGORZ Administration - Exam Eye: PERRL, anicteric sclera Heart: RRR, no gallops, no rubs, normal peripheral pulses, murmur present, II/IV Respiratory: CTAB, no wheezes, no rales, no ronchi, normal chest expansion, no tachypnea, normal percussion Gastrointestinal: soft, non-tender, non-distended, normal bowel sounds Extremities: no cyanosis, no edema Hosp A/P (1) Seizure-like activity Code(s): R56.9 - UNSPECIFIED CONVULSIONS Status: Acute (2) Sinus tachycardia Code(s): R00.0 - TACHYCARDIA, UNSPECIFIED Status: Acute - Plan * Seizure disorder- discussed with Dr. Christensen- Adjustment in the dose of Keppra noted * ? Arrhythmia- will request the records from [facility] * Consult Cardiology * Will discontinue antibiotics, she does not have any evidence of infection
[2019-12-01] MEDS ORDERED: traMADol HCl 50 MG TAB PO SCH (20:30)
[2019-12-01] MEDS ORDERED: Atenolol 25 MG TAB PO SCH (21:00)
[2019-12-01 21:14] LABS: Anion Gap 11 mmol/L (10-20); Carbon Dioxide 20 mmol/L (22-29); Chloride 112 mmol/L (98-107); Potassium 4.1 mmol/L (3.5-5.1); Sodium 139 mmol/L (136-145)
--- NOTE | 2019-12-02 00:20 | CON ---
DATE OF CONSULTATION: 12/01/2019 REASON FOR CONSULTATION: Cardiac evaluation, history of tachycardia. HISTORY OF PRESENT ILLNESS: Ms. Rodriguez is a 19-year-old woman with a history of seizure disorder. The patient has had most of her care obtained in other locations and records have been requested. She said she has had chest pain ever since she was a freshman in high school off and on. She was told to take Tylenol. She also states she has had some rapid heart rates and she saw an explosives handler in [place] who recommended either an ablation or defibrillator or perhaps both. Those records are not available to me. The patient has had history of seizure disorder with some additional seizures here of unclear etiology. MEDICATIONS: Please see nurse's notes. ALLERGIES: LATEX, DILANTIN, COCONUT, IBUPROFEN. PHYSICAL EXAMINATION: VITAL SIGNS: Her blood pressure is 150/74, pulse currently is 80, it is sinus. LUNGS: Clear. CARDIAC: Normal S1, normal S2. ABDOMEN: Soft, nontender. EXTREMITIES: Warm, dry. No clubbing. No cyanosis. No edema. EKG: Sinus tachycardia with rightward axis. No acute changes. Small Q-waves in the inferior leads on another EKG. Echocardiogram I have ordered. SEROLOGY: She is negative for COVID. Her potassium is 3.5. Troponin less than 0.10. ASSESSMENT: 1. History of seizure disorder. 2. History of rapid heart rates per patient. 3. She said she has seen an explosives handler and defibrillator was discussed. These records are not available to me. PLAN: 1. She is continued to be monitored. So far I have only seen sinus rhythm, sinus tachycardia, and some artifact. 2. Antiepileptic medicines being adjusted by Neurology. 3. Echocardiogram ordered. Job ID: [id number]
--- NOTE | 2019-12-02 07:30 | CON ---
NEUROLOGY CONSULTATION DATE OF CONSULTATION: 12/01/2019 REASON FOR CONSULTATION: Breakthrough seizure. HISTORY OF PRESENT ILLNESS: Ms. Rodriguez is a 19-year-old female with history significant for seizure disorder, sick sinus syndrome, non psychogenic nonepileptic seizure presented to the emergency room with multiple episodes of seizure-like activity. According to the emergency room physician, she had 9 episodes in the ED and her mental status seems to be clear in between episodes. There was a concern about nonepileptic events. However, she has been diagnosed with epilepsy by a neurologist in [place] and is currently on Keppra and Trileptal polytherapy. However, she also has history of normal EEGs in the past and there was a concern that some of her spells may be nonepileptic. In the emergency room she was given 2 g of Keppra, 2 mg Ativan and 4 g of midazolam and oral Trileptal and is admitted for further evaluation. The patient also has low-grade fever, so treated for sepsis. Neurology was consulted for further evaluation. The patient denies any nausea, vomiting, focal weakness, focal paresthesias, chest pain, abdominal pain, recent illness, problems with swallowing or speech associated with the episode. REVIEW OF SYSTEMS: All 14 systems were reviewed and were negative except the pertinent positives and negatives mentioned in the HPI. MEDICATIONS: 1. Trileptal 900 mg p.o. b.i.d. 2. Keppra 500 mg p.o. b.i.d. 3. Seroquel 25 mg p.o. at bedtime p.r.n. 4. Sertraline 50 mg p.o. daily. 5. Trazodone 50 mg p.o. at bedtime. 6. Atenolol 25 mg daily. 7. Diltiazem 120 mg p.o. daily. PAST MEDICAL HISTORY: SVT, sick sinus syndrome, seizure disorder, psychogenic nonepileptic seizures. PAST SURGICAL HISTORY: Cyst removal. FAMILY HISTORY: No significant family history of epilepsy. SOCIAL HISTORY: The patient denies smoking, alcohol, illegal drug use. Vital Signs & Weight: Vital Signs (12 hours) Temp Pulse Resp BP BP Pulse Ox 12/01/19 11:52 98.1 F 103 H 20 141/63 H 98 12/01/19 09:50 90 139/77 12/01/19 08:31 97.7 F 108 H 12 125/76 100 12/01/19 04:00 98.1 F 103 H 23 H 119/66 100 Weight Admit Weight 201 lb 6.4 oz Weight 201 lb 6.4 oz I&O: 11/30/19 12/01/19 12/02/19 06:59 06:59 06:59 Intake Total 240 Balance 240 Active Medications Generic Name Dose Route Start Last Admin Trade Name Freq PRN Reason Stop Dose Admin Acetaminophen 650 mg 11/30/19 22:41 12/01/19 14:30 Acetaminophen 325 Mg Tab PO 650 mg Q4H PRN Administration Headache/Fever/Mild Pain (1-3) Diltiazem HCl 120 mg 12/01/19 09:00 12/01/19 09:50 Diltiazem Cd 120 Mg Cap PO 120 mg DAILY GRZEGORZ Administration Enoxaparin Sodium 40 mg 12/01/19 09:00 12/01/19 09:52 Enoxaparin Sodium 40 Mg/0.4 Ml Syringe SC Not Given 09 GRZEGORZ Cefepime HCl 1 gm/ Sodium 100 mls @ 200 mls/hr 11/30/19 23:59 12/01/19 13:16 Chloride IVPB 100 mls 1200,2359 GRZEGORZ Administration Sodium Chloride 1,000 mls @ 125 mls/hr 11/30/19 23:09 12/01/19 09:54 Normal Saline 0.9% IV 1,000 mls .Q8H GRZEGORZ Administration Vancomycin HCl 1.5 gm/ Device 300 mls @ 200 mls/hr 12/01/19 14:00 12/01/19 14:25 IVPB 300 mls 0200,1400 GRZEGORZ Administration Lorazepam 2 mg 11/30/19 22:41 12/01/19 00:49 Lorazepam 2 Mg/Ml Vial SLOW IVP 2 mg Q4H PRN Administration Seizures Oxcarbazepine 900 mg 12/01/19 09:00 12/01/19 09:49 Oxcarbazepine 300 Mg Tab PO 900 mg BID GRZEGORZ Administration Sertraline HCl 50 mg 12/01/19 09:00 12/01/19 09:48 Sertraline Hcl 100 Mg Tab PO 50 mg DAILY GRZEGORZ Administration PHYSICAL EXAMINATION: General Appearance: NAD General - other findings: Somnolent Eye: PERRL ENT: normocephalic atraumatic, no oropharyngeal lesions, moist mucosa Neck: supple, symmetric, no JVD, no thyromegaly Heart: RRR (Tachycardic), no murmur, no gallops Respiratory: CTAB, no wheezes, no rales, no ronchi Gastrointestinal: soft, non-tender, non-distended, normal bowel sounds Extremities: no cyanosis, no edema Skin: normal turgor, no rashes Neurological: Mental status: Alert and oriented x 3 CN [id number] INTACT No focal deficits Sensory and cerebellar intact LABORATORY DATA: Data reviewed. Labs were significant for anemia with hemoglobin of 9.4, hematocrit of 28.8. WBC 9.8 thou/uL (4.8-10.8) 11/30/19 17:22 Hgb 11.0 g/dL (12.0-16.0) L 11/30/19 17:22 Hct 33.1 % (36.0-47.0) L 11/30/19 17:22 MCV 78.5 fL (78.0-98.0) 11/30/19 17:22 Plt Count 397 thou/uL (130-400) 11/30/19 17:22 Neutrophils % 59.1 % (31.0-61.0) 11/30/19 17:22 Sodium 137 mmol/L (136-145) 11/30/19 17:22 Potassium 3.4 mmol/L (3.5-5.1) L 11/30/19 17:22 Chloride 106 mmol/L (98-107) 11/30/19 17:22 Carbon Dioxide 15 mmol/L (22-29) L 11/30/19 17:22 BUN 9 mg/dL (7.0-18.7) 11/30/19 17:22 Creatinine 0.80 mg/dL (0.6-1.1) 11/30/19 17:22 Glucose 122 mg/dL (70-105) H 11/30/19 17:22 Lactic Acid 7.2 mmol/L (0.5-2.2) H* 11/30/19 17:23 Calcium 9.2 mg/dL (7.8-10.44) 11/30/19 17:22 Total Bilirubin 0.2 mg/dL (0.2-1.2) 11/30/19 17:22 AST 16 U/L (5-34) 11/30/19 17:22 ALT 14 U/L (8-55) 11/30/19 17:22 Alkaline Phosphatase 119 U/L (40-100) H 11/30/19 17:22 Creatine Kinase 36 U/L (29-168) 11/30/19 19:20 Troponin I Less than 0.010 ng/mL (< 0.028) 11/30/19 19:20 Serum Total Protein 7.9 g/dL (6.0-8.3) 11/30/19 17:22 Albumin 4.4 g/dL (3.5-5.0) 11/30/19 17:22 ASSESSMENT AND PLAN: (1) Seizure-like activity Code(s): R56.9 - UNSPECIFIED CONVULSIONS Status: Acute (2) Sinus tachycardia Code(s): R00.0 - TACHYCARDIA, UNSPECIFIED Status: Acute Ms. Rodriguez is admitted to the hospital for breakthrough seizures. She has no seizures since admission to the hospital. EEG completed and reviewed, which was negative for seizure activity. Check Trileptal and Keppra level. Continue Trileptal 900 mg p.o. b.i.d. Increase Keppra to 500 mg p.o. q.a.m. and 750 mg p.o. q.p.m., Ativan 2 mg IV for seizure greater than 2 minutes. Observe seizure precautions. Continue medical management per primary team. The patient is at her baseline from neurological perspective. She should follow up with her primary neurologist and sliver cutter as outpatient for further adjustment of medications. Plan discussed in detail with the patient, and during MDR rounds. Thank you for the consult. Job ID: [id number] [facility] MEDICAL CENTERLouie
[2019-12-02] MEDS: Lorazepam 2 MG/ML VIAL SLOW IVP PRN ×2 (08:23→12:38)
[2019-12-02] MEDS ORDERED: levETIRAcetam 500 MG TAB PO SCH (09:00)
[2019-12-02] MEDS: Enoxaparin Sodium 40 MG/0.4 ML SYRINGE SC SCH (09:47)
[2019-12-02] MEDS: OXcarbazepine 300 MG TAB PO SCH (09:49)
[2019-12-02] MEDS: Sodium Chloride 0.9% 1,000 ML IV SCH ×2 (09:57)
[2019-12-02 12:22] VITALS: BP 126/65; TEMP 99.3
--- NOTE | 2019-12-02 13:28 | EKG ---
Test Reason : Blood Pressure : / mmHG Vent. Rate : 126 BPM Atrial Rate : 126 BPM P-R Int : 124 ms QRS Dur : 074 ms QT Int : 298 ms P-R-T Axes : 000 132 102 degrees QTc Int : 431 ms Sinus tachycardia Right axis deviation Abnormal ECG #1 Confirmed by TORIE DALEY DO ([id number]), electronic news gathering editor DONNY SHERMAN ([id number]) on 12/02/2019 1:27:41 PM Referred By: Confirmed By:TORIE DALEY DO
--- NOTE | 2019-12-03 13:08 | DIS ---
DATE OF ADMISSION: 11/30/2019 DATE OF DISCHARGE: 12/02/2019 DISCHARGE DISPOSITION: Home. PRIMARY DISCHARGE DIAGNOSIS: Pseudoseizures. PROCEDURES DONE DURING HOSPITALIZATION: EEG done showed normal awake, drowsy, and sleep EEG. Echo with 2D Doppler showed EF of 60% to 65%. No gross valvular abnormalities were seen. Blood cultures x2, no growth. H and H 9 and 28, platelet count 307, MCV is 79. Serum test is negative. BUN 4, creatinine 0.6. Troponin x2 negative. TSH 2.26. Prolactin 20. Urine drug screen was positive for benzodiazepines and opiates. COVID-19 PCR was not detected on 11/30/2019. DISCHARGE PLAN: The patient to follow up with her primary care physician in 1 week. BRIEF COURSE DURING HOSPITALIZATION: The patient initially got admitted with episodes of seizure, apparently had 9 such episodes prior to admission. She was given multiple medications including Keppra, lorazepam, midazolam, oxcarbazepine. In view of this history, the patient was admitted to stroke unit for close monitoring of neurologic function. She has had EEG done and has had consultation with Dr. Christensen as well. The patient appeared to have pseudoseizures. She otherwise remained hemodynamically stable and neurologically stable as well. She is being discharged home this morning. Please note, I have seen and examined the patient on the day of discharge. Job ID: [id number]
--- NOTE | 2019-12-08 13:21 | EKG ---
Test Reason : STAT Blood Pressure : / mmHG Vent. Rate : 085 BPM Atrial Rate : 085 BPM P-R Int : 142 ms QRS Dur : 088 ms QT Int : 380 ms P-R-T Axes : 040 055 027 degrees QTc Int : 452 ms Normal sinus rhythm Normal ECG When compared with ECG of 30-NOV-2019 18:06, (Unconfirmed) Vent. rate has decreased BY [address] no longer depressed in Lateral leads Nonspecific T wave abnormality no longer evident in Anterolateral leads Confirmed by DR. Nghia HILL ([id number]) on 12/08/2019 1:21:01 PM Referred By: POPEYE Confirmed By:DR. Nghia HILL
== END 2019-12-02 16:04 | disposition home or self-care (01) | DRG 880 ==
LOC: ERS 17:07 → 2SE 21:38
PROVIDERS: ADMIT Internal Medicine; ATTEND Internal Medicine
DX: F44.5 Conversion disorder with seizures or convulsions (principal); E87.2 Acidosis; Z20.828 Contact with and (suspected) exposure to other viral communicable diseases; G40.909 Epilepsy, unspecified, not intractable, without status epilepticus; I49.5 Sick sinus syndrome; Z79.899 Other long term (current) drug therapy; Z91.018 Allergy to other foods; Z91.040 Latex allergy status; Z88.8 Allergy status to other drugs, medicaments and biological substances
CPT/HCPCS: 36415; 80048; 80053; 80306; 80307; 81001; 82550; 83605; 84146; 84443; 84484; 84703; 85025; 87635; 93005; 93010; 93306; 95712; 95816; 95819; 95957; 96365; 96367; 96375; J0461; J0692; J1200; J1650; J1953; J2060; J2250; J2270; J3370; J3490; J7030; U0003

== ENCOUNTER 2020-01-14 14:33 | Emergency (ER) | payer MEDICAID, SELFPAY ==
[2020-01-14 15:01] LABS: Bilirubin Negative (Negative); Blood, Urine Negative (Negative); Clarity Clear (Clear); Glucose, Urine (Dipstick) Normal (Negative); Ketone, Urine Negative (Negative); Leukocyte Negative Leu/uL (Negative); Nitrite Negative (Negative); Protein, Urine (Dipstick) Negative (Neg-Trace); Specific Gravity, Urine 1.005 (1.002-1.036); Urobilinogen Normal mg/dL (Less than 2); pH, Urine 7.5 (5.0-9.0)
[2020-01-14 15:27] LABS: #Basophils 0.1 thou/uL (0.0-0.2); #Eosinphils 0.3 thou/uL (0.0-0.7); #Lymphocytes 3.4 thou/uL (1.20-3.40); #Neutrophils 6.2 thou/uL (1.40-6.50); %Basophils 0.8 % (0.0-1.0); %Eosinophils 2.5 % (0.0-10.0); %Lymphocytes 31.3 % (28.0-48.0); %Neutrophils 56.4 % (31.0-61.0); Hemoglobin 12.2 g/dL (12.0-16.0); Mean Corpuscular HGB CONC 31.8 g/dL (32.0-36.0); Mean Corpuscular Hemoglobin 25.3 pg (25.0-35.0); Mean Corpuscular Volume 79.6 fL (78.0-98.0); Mean Platelet Volume 7.1 fL (7.4-10.4); Platelet Count 375 thou/uL (130-400); RBC Distribution Width 14.3 % (11.5-14.5); Red Blood Cell (RBC) Count 4.81 mill/uL (4.00-5.20); White Blood Cell (WBC) Count 10.9 thou/uL (4.8-10.8)
[2020-01-14 15:58] LABS: ALT (SGPT) 23 U/L (8-55); AST (SGOT) 19 U/L (5-34); Albumin 4.6 g/dL (3.5-5.0); Alkaline Phosphatase 112 U/L (40-100); Anion Gap 16 mmol/L (10-20); BUN (Urea Nitrogen) 7 mg/dL (7.0-18.7); Bilirubin, Total 0.7 mg/dL (0.2-1.2); Calc. Creatinine Clearance 0 mL/min (70-130); Calcium 9.8 mg/dL (7.8-10.44); Carbon Dioxide 22 mmol/L (22-29); Chloride 105 mmol/L (98-107); Estimated GFR-MDRD Greater than 90; Globulin 3.5 g/dL (2.4-3.5); Glucose 82 mg/dL (70-105); Potassium 3.6 mmol/L (3.5-5.1); Protein, Total 8.1 g/dL (6.0-8.3); Sodium 139 mmol/L (136-145)
--- NOTE | 2020-01-14 17:24 | ULT ---
TRANSABDOMINAL AND TRANSVAGINAL PELVIC ULTRASOUND WITH DOPPLER: Date: 01-14-2020 PROVIDED CLINICAL HISTORY: Vaginal spotting FINDINGS: The uterus measures approximately 8.2 x 3.8 cm. There is an intrauterine gestational sac containing a yolk sac and pole. The pole crown rump length corresponds to a 5 week 6 day gestation. N o heart tones are demonstrated. The right ovary appears sonographically unremarkable. The left ovary appears sonographically unremark able. Color doppler and spectral analysis of the ovarian waveforms demonstrates normal flow bilateral ly. There is no evidence for free pelvic fluid. IMPRESSION: Intrauterine gestational sac containing pole with crown rump length corresponds to a 5 week 6 d ay gestation. No heart tones are documented, which could be on the basis of early gestational a ge. Correlation with serial follow up BETA HCG values is recommended. POS: DONNIE
[2020-01-18 11:16] LABS: Chlamydia trachomatis by NAA Negative (Negative)
== END 2020-01-14 17:34 | disposition home or self-care (01) ==
LOC: ERS 14:33
DX: O20.9 Hemorrhage in early pregnancy, unspecified (principal); O99.711 Diseases of the skin and subcutaneous tissue complicating pregnancy, first trimester; L05.91 Pilonidal cyst without abscess; O99.351 Diseases of the nervous system complicating pregnancy, first trimester; G40.909 Epilepsy, unspecified, not intractable, without status epilepticus; Z3A.01 Less than 8 weeks gestation of pregnancy
CPT/HCPCS: 36415; 76856; 80053; 81003; 84702; 85025; 86900; 86901; 87491; 87591

== ENCOUNTER 2020-03-23 05:39 | Inpatient (IN) | payer OTHER ==
[2020-03-23] MEDS ORDERED: Acetaminophen 650 MG Suppository PR PRN (06:16)
[2020-03-23] MEDS ORDERED: Ondansetron ODT 4 MG TAB PO PRN (06:16)
[2020-03-23] MEDS ORDERED: Ondansetron PF 4 MG/2 ML Vial IVP PRN (06:16)
--- NOTE | 2020-03-23 07:08 | PDOC.FPRHP ---
- History of Present Illness Chief Complaint: TXFR from [facility] History of Present Illness: Pt presents as a transfer from [facility]. She had reported to the ER due to COVID sxs and was tested for this, however, while she was in the ED, she had reportedly great than 20 seizures and had become hypoxic as well. Because of the increase in her seizures and the fact that she had become hypoxic, she was intubated and sedated. Pt has history of seizures and has had multiple admissions for this. She was been seen by neurology and has had EEGs in the past. She is on anti- epileptics, however, per report from CCU nurse, since she is 16 weeks , her OB had taken her off of her anti-epileptic medications. Pt reportedly went into SVT with HR into the 160-170s during her seizure activity in the ER and was given IVP of metoprolol for this. She apparently has a hx of going into SVT. ED Course: At [facility] ED: Keppra 2g Lorazepam 6mg Midazolam 2mg Metoprolol 5mg IVP 2L NS Brain CT: awaiting read CXR: awaiting read Intubated and sedated on propofol - Allergies/Adverse Reactions Allergies Allergy/AdvReac Type Severity Reaction Status Date / Time latex Allergy Intermediate Verified 10/14/19 01:17 phenytoin [From Dilantin] Allergy Unknown Hives Verified 10/14/19 01:17 adhesive Allergy Verified 10/14/19 01:17 azithromycin Allergy Verified 10/14/19 01:17 coconut Allergy Rash Verified 10/17/19 13:33 ibuprofen Allergy Verified 10/14/19 01:17 lamotrigine [From Lamictal] Allergy Rash Verified 10/14/19 01:17 - Home Medications Medication Instructions Recorded Confirmed Type OXcarbazepine [Trileptal] 900 mg PO BID 10/14/19 12/01/19 History QUEtiapine Fumarate [SEROquel] 25 mg PO HS PRN 10/14/19 12/01/19 History Sertraline HCl 50 mg PO DAILY 10/14/19 12/01/19 History levETIRAcetam [Levetiracetam] 500 mg PO BID 10/14/19 12/01/19 History traZODone HCl [Trazodone HCl] 50 mg PO HS PRN 10/14/19 12/01/19 History Atenolol 25 mg PO HS 12/01/19 12/01/19 History Diltiazem HCl [Cardizem] 120 mg PO DAILY 12/01/19 12/01/19 History - History PMHx: -Seizure disorder -POTs -SVT -Sick Sinus Syndrome -2 miscarriages PSHx: -Cyst Removal FHx: -Non-contributory Social: -based on chart review: no hx of tobacco, etoh, drug use - Review of Systems ROS unobtainable: due to endotracheal tube - Vital signs BP: [140/86] HR: [100] RR: [15] Wt: [85kg] - Physical Exam -Constitutional: sedated, intubated HEENT: normocephalic and atraumatic, conjunctiva clear -HEENT: perrl Neck: supple, trachea midline Chest: no lesions -Heart: tachy, reg rhythm Lungs: CTAB, good air movement Abdomen: soft, non-tender Musculoskeletal: normal structure, normal tone -Neurological: sedated Skin: no rash/lesions, good turgor Heme/Lymphatic: no unusual bruising or bleeding, no purpura -Psychiatric: sedated FMR H&P: A/P - Plan ##Seizure Disorder -status epilepticus s/p intubated and sedated on propofol -given multiple rounds of BZD, keppra -has hx of seizures and on multiple anti-epileptics at home, will hold those medications for now -Brain CT done, awaiting final report -day team to consult neurology, EEG ordered ##sIUP, in 1st trimester -reportedly had US at [facility] which showed patient at 16 wga, but no formal documentation of this -will order 1st trimester u/s -day team to consult OB-REFRIGERATOR REPAIR TECHNICIAN ##Hx of SVT -pt has hx of going into SVT -based on chart review, on HR controlling meds at home -holding any BB CODE: FULL DIET: NPO mIVF PCP: CC Dispo: admitted to CCU. intubated and sedated on propofol. FMR H&P: Upper Level - Plan Date/Time: 03/23/20 0707 Ezra Whitley PGY3, have evaluated this patient and agree with findings/plan as outlined by creative services intern resident. Pertinent changes/additions are listed here. 19yo at 16w EGA by US done today in ER with pmh of seizure disorder presents from [facility] for siezures. She had multiple siezures in ER was given multiple doses of ativan, keppra, and metoprolol (for co-occuring tachycardia). She had brain CT which was reported to be negative. and CXR which was wnl. On exam here she is intubated and sedated. She responds to commands by opening her eyes and squeezing hands. cardiopulm exam unremarkable. PERRL. A/P Seizures -both epilepsy and pseudosiezures are documented in her hx. During her episodes today she had tachycardia and hypoxia. Will be careful with weaning propofol. Will give 24hrs propofol. Order EEG. Plan for neuro consult later today. sIUP - is non-viable. Will plan to consult BOMB SQUAD OFFICER later this morning. Repeat 1TUS as there is no documented report from CS. ventilator dependent -pulm consult Documented Hx of SVT -documented episodes in ER. Apparently has hx of tachycardia episodes with her siezures. Will monitor on CCU telemetry and consult cards if arrhythmias ensu CODE: FULL, will verify once extubated dispo: inpt, expect > 2 midnights Addendum - Attending - Attending Attestation Date/Time: 03/23/20 1503 I personally evaluated the patient and discussed the management with the team this morning. I agree with the History, Examination, Assessment and Plan documented above with any addition or exceptions noted below. Status epilepticus presumably off AED's with possible pseudoseizure component as well in the setting of underlying h/o SVT. Unfortunately no ICU beds available within 2.5 hours (transfer has been attempted essentially all night). I discussed with Dr. Baez and Dr. Charles was curbsided. We will accept. Consult neuro in AM, expediter, and possibly call MFM. Alert pulm in the AM as well. Continue propofol. Will need high dose FA.
[2020-03-23] MEDS ORDERED: Propofol 1,000 MG/100 ML VIAL IV ONE (07:23)
[2020-03-23] MEDS ORDERED: Ventilator Sedation Protocol 1 EACH FS ONE (07:26)
[2020-03-23] MEDS ORDERED: Fentanyl BOLUS 250 ML IVPB PRN (07:30)
[2020-03-23] MEDS ORDERED: Fentanyl CADD 100 ML IV SCH (07:30)
[2020-03-23] MEDS ORDERED: Propofol BOLUS 1,000 MG/100 ML VIAL IV PRN (07:30)
[2020-03-23] MEDS ORDERED: Propofol 1,000 MG/100 ML VIAL IV PRN (07:30)
[2020-03-23] MEDS ORDERED: DISCONTINUE PREVIOUS NARCOTIC PAIN MEDICATIONS AND BENZODIAZEPINES FS SCH (07:30)
[2020-03-23] MEDS ORDERED: Lorazepam 2 MG/ML VIAL SLOW IVP PRN (07:30)
[2020-03-23] MEDS ORDERED: Morphine 2 MG/ML VIAL SLOW IVP PRN (07:30)
[2020-03-23] MEDS: Lactated Ringer's 1,000 ML IV SCH ×2 (07:51→16:43)
--- NOTE | 2020-03-23 08:10 | ULT ---
Limited Obstetrical Ultrasound INDICATION: First trimester obstetrical ultrasound performed; evaluate size and dates TECHNIQUE: Grayscale, M-mode Doppler, color Doppler and spectral Doppler images were obtained. Bobbi sutherland is focused on the clinical indication. COMPARISON: No relevant prior studies available. FINDINGS: GESTATION: Number of gestations: Single. Presentation: Cephalic. heart rate: 143 bpm. Placental location: Anterior Previa: No evidence for previa. Cervical length: Not well seen NITIN: Qualitatively normal appearing. LIMITED SURVEY: No abnormality as visualized. BIOMETRY: Biparietal diameter: 4.04cm, 18 weeks and 2 day, Not calculated.. Head circumference: 12.13 cm, 16 weeks and 0 days, 38th percentile Abdominal circumference: 10.38 cm, 16 weeks and 2 days, 64th percentile Femoral length: 2.09cm, 16 weeks and 2 days, 55th percentile Estimated weight: 152 g +/- 22g (0 lbs. 5 oz. +/- 1 ounce), 63rd percentile The average gestational age by ultrasound is 16 weeks and 0 dayswith estimated due date of September 07. The estimated dates by clinical data is 16 weeks and 0 dayswith estimated due date of September 07, 2020. The adnexa were not demonstrated. IMPRESSION: 1. Single live intrauterine gestation with size and dates as above.
[2020-03-23] MEDS ORDERED: Rocuronium Bromide 10 MG/ML (10ML VIAL) ONE (09:05)
[2020-03-23] MEDS ORDERED: PROPOFOL 200 MG/20 ML VIAL ONE (09:05)
[2020-03-23 10:22] LABS: Amphetamine Not Detected (NotDetected); Barbiturates Screen Not Detected (NotDetected); Benzodiazepine Screen Detected (NotDetected); Cocaine Metabolite Screen Not Detected (NotDetected); Medtox Control Line Valid? VALID (VALID); Medtox Reader # READER 4; Methadone Not Detected (NotDetected); Methamphetamine Not Detected (NotDetected); Opiate Screen Not Detected (NotDetected); Oxycodone Screen Not Detected (NotDetected); Phencyclidine (PCP) Not Detected (NotDetected); THC/Cannabinoid Screen Not Detected (NotDetected); Tricyclic Screen Not Detected (NotDetected)
--- NOTE | 2020-03-23 12:02 | PDOC.EEG ---
Neurology EEG Report - Report Report: This EEG was performed using 24 channel [employer] video EEG machine with 24 disc electrodes. This was an extended 2 hours 13 minutes of inpatient video EEG recording. Digital analysis of the EEG was done for spike and seizure detection which revealed no abnormalities. Background: The posterior background rhythm is not observed. Excessive beta activity is seen intermixed with the background Hyperventilation: Not performed. Photic Stimulation: No significant response. Sleep: No stage change is observed. Spells: None EEG Diagnosis: Generalized irregular theta delta activity with superimposed excessive beta seen during the recording. Absence of posterior background rhythm. Clinical Interpretation: This EEG is consistent with moderate generalized nonspecific cerebral dysfunction.
--- NOTE | 2020-03-23 15:29 | CON ---
NEUROLOGY CONSULTATION DATE OF CONSULTATION: 03/23/2020 REASON FOR CONSULTATION: Seizures. HISTORY OF PRESENT ILLNESS: Ms. Martell Rodriguez is a 19-year-old female who is a transfer from [facility] because of COVID-like symptoms and then reportedly she had about 20 seizures in the emergency room during which she became hypoxic. She has been seen by Neurology in the past and has a history of pseudoseizures and negative EEGs in the past. However, we were not able to capture her seizures on a video EEG recording. She was admitted in November 2018 and was discharged on Keppra with the referral to the Ep[facility]psy Center for EMU monitoring. However, the patient never followed up with the Epilepsy Center for continuous monitoring and she took herself off Keppra when she became and currently she is 16 weeks . In the emergency room, she was intubated and sedated and admitted to the ICU for further evaluation. During her stay at the [facility], she received 2 g of Keppra, lorazepam, midazolam, metoprolol and head CT was done, which was negative for acute intracranial pathology. Then eventually intubated and sedated on propofol. This morning, she was extubated and currently she is alert and oriented to person, place, and time. The patient denies nausea, vomiting, headache, abdominal pain, recent illness, chest pain, but does report some shortness of breath and then she had multiple seizures. ALLERGIES: LATEX, PHENYTOIN, AZITHROMYCIN, IBUPROFEN, LAMOTRIGINE. PAST MEDICAL HISTORY: History of seizure disorder, POTS, SVT, sick sinus syndrome, two miscarriages. PAST SURGICAL HISTORY: Cyst removal. FAMILY HISTORY: No family history of seizures. SOCIAL HISTORY: No history of tobacco, alcohol, or illegal drug abuse. REVIEW OF SYSTEMS: All systems reviewed and were negative except the pertinent positives and negatives mentioned in the HPI. PHYSICAL EXAMINATION: VITAL SIGNS: Blood pressure 140/86, pulse 100, respiratory rate 18. GENERAL: Alert, awake female, in no acute distress. CVS: Regular rate and rhythm. CHEST: Clear. ABDOMEN: Soft. NECK: Supple. NEUROLOGICAL: Mental status, the patient is alert and oriented to person, place, and time. Speech is clear. Cranial nerves II through XII intact. Motor, muscle tone and bulk are normal. Strength 5/5 bilaterally. Sensory intact. Cerebellar, finger-nose testing intact. Gait deferred due to patient's safety reasons. DATA REVIEWED: I reviewed the head CT, which was negative for acute intracranial pathology. ASSESSMENT AND PLAN: Ms. Rodriguez is a 19-year-old female with history significant for seizure disorder and pseudoseizures, SVT, presented to the emergency room with [id number] seizure-like episodes. She took herself off Keppra because of . She also has a history of pseudoseizures, and during the last visit, she was referred to the [facility]psy Center for further evaluation and was kept on Keppra. Restart Keppra 500 mg p.o. b.i.d. Observe seizure precaution. Ativan 2 mg IV for seizure greater than 2 minutes. We will continue continuous video EEG monitoring for the next 24 hours to capture her spells for definitive diagnosis as this will help us in managing her disorder -seizure versus pseudoseizures. Continue home medications. Continue medical management per primary team. Neurochecks every 4 hours. Plan discussed communicated in detail with the primary team and the nursing staff. We will continue to follow. Further recommendations will depend on the results of the testing. Thank you for the consult. Job ID: [id number] MTDD
[2020-03-23] MEDS: Acetaminophen 325 MG TAB PO PRN (16:42)
[2020-03-23] MEDS ORDERED: Lorazepam 2 MG/ML VIAL SLOW IVP SCH (18:00)
--- NOTE | 2020-03-23 18:40 | CON ---
DATE OF CONSULTATION: 03/23/2020 HISTORY OF PRESENT ILLNESS: Ms. Rodriguez is a 19-year-old female in the early stages of . She apparently had a seizure and was intubated. I was consulted to assist in the intensive care unit. She has had workups in the past for seizures that were negative for a true seizure disorder. She actually has been referred to an Epilepsy Center in the past for further workup and did not keep followup and also took herself off Keppra. She is 16 weeks' . PAST MEDICAL HISTORY: Remarkable for SVT and 2 miscarriages in the past. ALLERGIES: SHE REPORTS ALLERGIES TO LATEX, DILANTIN, Z-NEVAEH, IBUPROFEN, LAMOTRIGINE; UNCLEAR IF THESE ARE TRUE ALLERGIES ARE NOT. FAMILY HISTORY: Negative for lung disease in early age. Nonsmoker, nondrinker, not a drug user REVIEW OF SYSTEMS: Not obtainable. PHYSICAL EXAMINATION: GENERAL: She was intubated. She is in no distress. Sedation is turned off. EEG was being done. VITAL SIGNS: Heart rate is 107, blood pressure 113/80, respiratory rate is 18, oximetry is 100%. HEAD AND NECK: Unremarkable. LUNGS: Clear. HEART: Regular rate and rhythm. S1 and S2 are normal. ABDOMEN: Soft and nontender. EXTREMITIES: Without clubbing, cyanosis, or edema. IMPRESSION: Status post intubation for seizures ? She is stable with no seizure activity at the time of my consult. I recommended extubation. This has been done successfully. CRITICAL CARE TIME: 30 minutes. Job ID: [id number] MTDD
[2020-03-23] MEDS: levETIRAcetam in NS 500 MG in Premix Bag 1 BAG IVPB SCH (21:41)
[2020-03-24] MEDS ORDERED: Calcium Carbonate 500 MG ChewTAB PO PRN (00:03)
[2020-03-24] MEDS: Lactated Ringer's 1,000 ML IV SCH (04:25)
--- NOTE | 2020-03-24 06:19 | PDOC.FM ---
- Subjective Subjective: resting comfortably in bed, reports feeling nauseated and having some gas pain. denies any cp or sob. - Objective Vital Signs & Weight: Vital Signs (12 hours) Temp Pulse Ox 03/24/20 04:00 98.2 F 03/24/20 00:00 97.9 F 03/23/20 20:00 98.3 F 99 Weight Weight 84.9 kg Most Recent Monitor Data Heart Rate from ECG 78 NIBP 110/62 NIBP BP-Mean 78 Respiration from ECG 19 SpO2 98 I&O: 03/22/20 03/23/20 03/24/20 06:59 06:59 06:59 Intake Total 3449 Output Total 2980 Balance 469 Phys Exam - Physical Examination Constitutional: NAD HEENT: moist MMs Neck: full ROM Respiratory: clear to auscultation bilateral Cardiovascular: RRR Gastrointestinal: no distention Musculoskeletal: pulses present Neurological: moves all 4 limbs Psychiatric: normal affect Skin: no rash Dx/Plan (1) Seizure-like activity Code(s): R56.9 - UNSPECIFIED CONVULSIONS Status: Acute (2) Sinus tachycardia Code(s): R00.0 - TACHYCARDIA, UNSPECIFIED Status: Acute - Plan Plan: Seizures - hx of epilepsy vs pseudoseizure - s/p recurrent seizure requiring propofol sedation and intubation, successfully extubated 2/6 - Keppra BID, currently 24hr EEG being completed - neuro consulted, appreciate recs sIUP -16wk by sono - folic acid - technical producer consulted Hx of SVT - seen in ED along with seizure like activity - tele monitoring CODE: FULL dispo: complete EEG today, further mgmt pending results. Addendum - Attending - Attending Attestation Date/Time: 03/24/20 0382 I personally evaluated the patient and discussed the management with the team. I agree with the History, Examination, Assessment and Plan documented above with any addition or exceptions noted below. Patient doing well this AM, no complaints when I interviewed her. Pending completion of EEG will check with neuro concerning d/c and final AED rec's. Increase FA despite being out of 1T. Will need driving precautions. Hopeful dc this afternoon or PM.
[2020-03-24] MEDS ORDERED: Simethicone Chewable 80 MG TAB PO PRN (07:30)
[2020-03-24] MEDS: Acetaminophen 325 MG TAB PO PRN (07:36)
[2020-03-24] MEDS: levETIRAcetam in NS 500 MG in Premix Bag 1 BAG IVPB SCH (07:37)
[2020-03-24] MEDS ORDERED: Mag-Al 1200 mg/1200 mg/30 ML UDCUP PO PRN (07:37)
[2020-03-24] MEDS ORDERED: Folic Acid 1 MG TAB PO SCH (09:00)
[2020-03-24] MEDS: Folic Acid 1 MG TAB PO SCH ×2 (10:09→11:23)
--- NOTE | 2020-03-24 10:16 | PDOC.EEG ---
Neurology EEG Report - Report Report: PROLONGED EEG This EEG was performed using 24 channel Obvious video EEG machine with 24 disc electrodes. Digital analysis of the EEG was done for spike and seizure detection which revealed abnormalities. This was an extended 18 hours 16 minutes of EEG recording. Background: The posterior background rhythm is 8.5 -9 Hz. The backround rhythm attenuates with eye opening and enhances with eye closure. Hyperventilation: Not performed. Photic Stimulation: No significant response. Sleep: Drowsiness and sleep are observed. SPELLS: None EEG Diagnosis: Rare midline and left parasagittal spikes seen during sleep. Occasional irregular theta activity seen during the recording. Clinical Interpretation: This EEG is consistent with interictal expression of epilepsy in the setting of mild generalized nonspecific cerebral dysfunction.
--- NOTE | 2020-03-24 10:26 | PDOC.NEUPN ---
- Subjective Encounter Date: 03/24/20 Subjective: No further documented seizures overnight. - Objective Vital Signs & Weight: Vital Signs (12 hours) Temp Pulse Ox 03/24/20 08:00 98 03/24/20 07:00 98.8 F 03/24/20 04:00 98.2 F 03/24/20 00:00 97.9 F Weight Weight 187 lb 2.759 oz Most Recent Monitor Data Heart Rate from ECG 98 NIBP 76/55 NIBP BP-Mean 62 Respiration from ECG 17 SpO2 97 I&O: 03/23/20 03/24/20 03/25/20 06:59 06:59 06:59 Intake Total 3583 500 Output Total 2980 350 Balance 603 150 Radiology Reviewed by me: Yes EKG Reviewed by me: Yes ROS - Medication Medications: Active Medications Generic Name Dose Route Start Last Admin Trade Name Freq PRN Reason Stop Dose Admin Acetaminophen 650 mg 03/23/20 06:16 03/24/20 07:36 Acetaminophen 325 Mg Tab PO 650 mg Q4H PRN Administration Headache/Fever/Mild Pain (1-3) Folic Acid 4 mg 03/24/20 09:00 03/24/20 10:09 Folic Acid 1 Mg Tab PO Not Given DAILY GRZEGORZ Levetiracetam 500 mg/ Device 100 mls @ 200 mls/hr 03/23/20 21:00 03/24/20 07:37 IVPB 100 mls BID GRZEGORZ Administration Ondansetron HCl 4 mg 03/23/20 06:16 03/24/20 07:37 Ondansetron Odt 4 Mg Tab PO 4 mg Q6H PRN Administration Nausea/Vomiting Sodium Chloride 10 ml 03/23/20 06:16 03/24/20 07:37 Flush - Normal Saline 10 Ml Syringe IVF 10 ml PRN PRN Administration Saline Flush PN A/P (1) Seizure disorder Code(s): G40.909 - EPILEPSY, UNSP, NOT INTRACTABLE, WITHOUT STATUS EPILEPTICUS Status: Acute (2) Seizure-like activity Code(s): R56.9 - UNSPECIFIED CONVULSIONS Status: Acute (3) Sinus tachycardia Code(s): R00.0 - TACHYCARDIA, UNSPECIFIED Status: Acute (4) POTS (postural orthostatic tachycardia syndrome) Code(s): I49.8 - OTHER SPECIFIED CARDIAC ARRHYTHMIAS Status: Acute - Plan Ms. 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 She was successfully extubated yesterday. Apparently, she stopped taking Keppra after she became and currently is 16 weeks . She was extubated yesterday and no further seizures reported . Seizures most likely due to discontinuation of Keppra which was resumed during this admission. Intial EEG did not reveal seizure activity. Prolonged overnight EEG showed cortical irritability - left parasaggittal and midline spikes consistent with underlying seizure disorder. Increase Keppra 1000 mg po bid.(ordered). Observe seizure precautions. Neurochecks every 4 hours. Telemetry to rule out arrythmias. Continue home medications. Continue medical management per primary team. Patient should be discharged on keppra 1000 mg bid with a follow up with outpatient neurologist as outpatient Plan discussed in detail with the patient, nursing staff and communicated with the primary team
--- NOTE | 2020-03-24 10:56 | PDOC.BPN ---
- Brief Progress Note Please note that case discussed with Dr. Riley yesterday in detail. He had no further recommendations beyond our current plan of care. Appreciate his input.
[2020-03-24] MEDS ORDERED: levETIRAcetam 500 MG TAB PO SCH ×2 (11:15→21:00)
[2020-03-24] MEDS: Calcium Carbonate 500 MG ChewTAB PO PRN ×2 (12:48→22:03)
--- NOTE | 2020-03-24 14:54 | PRG ---
DATE OF SERVICE: 03/24/2020 Matrell Rodriguez has had no documented seizures. Hemodynamics have been stable. She is stable to transfer out of the Critical Care Unit in my opinion. There are no acute care issues surrounding what led to her ICU admission. I am told her no documented epileptiform discharges seen on her EEG. We will sign off. Job ID: [id number]
--- NOTE | 2020-03-24 16:31 | PDOC.NEUPN ---
- Subjective Encounter Date: 03/24/20 Subjective: No further seizures after initiation of Keppra - Objective Vital Signs & Weight: Vital Signs (12 hours) Temp Pulse Ox 03/24/20 12:00 98.6 F 03/24/20 08:00 98 03/24/20 07:00 98.8 F Weight Weight 187 lb 2.759 oz Most Recent Monitor Data Heart Rate from ECG 85 NIBP 117/68 NIBP BP-Mean 84 Respiration from ECG 14 SpO2 99 I&O: 03/23/20 03/24/20 03/25/20 06:59 06:59 06:59 Intake Total 3583 1250 Output Total 2980 900 Balance 603 350 Radiology Reviewed by me: Yes EKG Reviewed by me: Yes ROS - Review of Systems Constitutional: denies: fever, chills, sweats, weakness, malaise, other Eyes: denies: pain, vision change, conjunctivae inflammation, eyelid inflammation, redness, other ENT: denies: ear pain, ear discharge, nose pain, nose discharge, nose congestion, mouth pain, mouth swelling, throat pain, throat swelling, other Respiratory: denies: cough, dry, shortness of breath, hemoptysis, SOB with excertion, pleuritic pain, sputum, wheezing, other Cardiovascular: denies: no pertinent history, AFIB, CAD, CHF, HTN, RI, Syncope, Hyperlipidemia, Mitral valve stenosis, Aortic stenosis, Valve insufficiency, Pulmonary hypertension, Other Genitourinary: denies: dysuria, frequency, incontinence, hematuria, retention, other Musculoskeletal: denies: neck pain, shoulder pain, arm pain, back pain, hand pain, leg pain, foot pain, other Skin: denies: rash, lesions, georgina, bruising, other Neurological: denies: weakness, numbness, incoordination, change in speech, confusion, seizures, other - Medication Medications: Active Medications Generic Name Dose Route Start Last Admin Trade Name Freq PRN Reason Stop Dose Admin Acetaminophen 650 mg 03/23/20 06:16 03/24/20 07:36 Acetaminophen 325 Mg Tab PO 650 mg Q4H PRN Administration Headache/Fever/Mild Pain (1-3) Al Hydroxide/Mg Hydroxide 30 ml 03/24/20 07:37 03/24/20 11:23 Mag-Al 1200 Mg/1200 Mg/30 Ml Udcup PO 30 ml Q8H PRN Administration Constipation Calcium Carbonate 1,000 mg 03/24/20 06:01 03/24/20 12:48 Calcium Carbonate 500 Mg Chewtab PO 1,000 mg BID PRN Administration Heartburn or Indigestion Folic Acid 4 mg 03/24/20 09:00 03/24/20 11:23 Folic Acid 1 Mg Tab PO 4 mg DAILY GRZEGORZ Administration Ondansetron HCl 4 mg 03/23/20 06:16 03/24/20 07:37 Ondansetron Odt 4 Mg Tab PO 4 mg Q6H PRN Administration Nausea/Vomiting Sodium Chloride 10 ml 03/23/20 06:16 03/24/20 07:37 Flush - Normal Saline 10 Ml Syringe IVF 10 ml PRN PRN Administration Saline Flush - Exam General Appearance: awake alert Eye: PERRL ENT: normocephalic atraumatic Neck: supple Respiratory: CTAB Cardiovascular: RRR Gastrointestinal: soft Extremities: no cyanosis Skin: normal turgor Neurological: CN's grossly intact, normal sensation to touch, no weakness, no focal deficits, no new deficit Musculoskeletal: normal tone, normal strength, no muscle wasting PSYCH: normal affect, normal behavior, A&O x 3 PN A/P (1) Seizure disorder Code(s): G40.909 - EPILEPSY, UNSP, NOT INTRACTABLE, WITHOUT STATUS EPILEPTICUS Status: Acute (2) Seizure-like activity Code(s): R56.9 - UNSPECIFIED CONVULSIONS Status: Acute (3) Sinus tachycardia Code(s): R00.0 - TACHYCARDIA, UNSPECIFIED Status: Acute (4) POTS (postural orthostatic tachycardia syndrome) Code(s): I49.8 - OTHER SPECIFIED CARDIAC ARRHYTHMIAS Status: Acute - Plan Daily Plan: PT/OT Ms. 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 She was successfully ex tubated yesterday. Apparently, she stopped taking Keppra after she became and currently is 16 weeks . She was extubated yesterday and no further seizures reported . Seizures most likely due to discontinuation of Keppra which was resumed during this admission. Intial EEG did not reveal seizure activity. Prolonged overnight EEG showed cortical irritability - left parasaggittal and midline spikes consistent with underlying seizure disorder. Increase Keppra 1000 mg po bid.(ordered). Observe seizure precautions. Neurochecks every 4 hours. Telemetry to rule out arrythmias. Continue home medications. Continue medical management per primary team. Patient should be discharged on keppra 1000 mg bid with a follow up with a neurologist as outpatient Plan discussed in detail with the patient, nursing staff and communicated with the primary team
[2020-03-24] MEDS: Lorazepam 2 MG/ML VIAL SLOW IVP PRN ×2 (19:30→23:06)
[2020-03-24 20:18] LABS: Hemoglobin 10.5 g/dL (12.0-16.0); Mean Corpuscular HGB CONC 32.5 g/dL (32.0-36.0); Mean Corpuscular Volume 79.9 fL (78.0-98.0); Mean Platelet Volume 7.4 fL (7.4-10.4); Platelet Count 291 thou/uL (130-400); RBC Distribution Width 14.9 % (11.5-14.5); Red Blood Cell (RBC) Count 4.03 mill/uL (4.00-5.20); White Blood Cell (WBC) Count 11.3 thou/uL (4.8-10.8)
[2020-03-24] MEDS ORDERED: LEVETIRACETAM IVPB SCH (20:30)
[2020-03-24] MEDS ORDERED: NS IVPB SCH (20:30)
[2020-03-24] MEDS ORDERED: SODIUM CHLORIDE 0.9% IVPB SCH (20:30)
[2020-03-24 20:33] LABS: Anisocytosis SLIGHT = 6-15 cells (100X) (0-5/hpf); Band 6 % (5-11); Eosinophils 3 % (0-10); Lymphocytes 26 % (28-48); MDiff Complete? YES; Monocytes 2 % (0-4); Neutrophil 62 % (31-61); Platelet Morphology Comment Appears Adequate; Polychromasia SLIGHT = 2-3 cells (100X) (0-2/hpf); Reactive Lymphocytes 1 % (0-10)
[2020-03-24 20:40] LABS: ALT (SGPT) 11 U/L (8-55); AST (SGOT) 11 U/L (5-34); Albumin 3.5 g/dL (3.5-5.0); Alkaline Phosphatase 83 U/L (40-100); Anion Gap 14 mmol/L (10-20); BUN (Urea Nitrogen) Less than 4 mg/dL (7.0-18.7); Bilirubin, Total 0.4 mg/dL (0.2-1.2); Calc. Creatinine Clearance 207 mL/min (70-130); Calcium 9.1 mg/dL (7.8-10.44); Carbon Dioxide 16 mmol/L (22-29); Chloride 109 mmol/L (98-107); Globulin 3.2 g/dL (2.4-3.5); Glucose 103 mg/dL (70-105); Magnesium 1.7 mg/dL (1.7-2.2); Phosphorus 2.5 mg/dL (2.3-4.7); Potassium 3.4 mmol/L (3.5-5.1); Protein, Total 6.7 g/dL (6.0-8.3); Sodium 136 mmol/L (136-145)
[2020-03-25] MEDS: Lorazepam 2 MG/ML VIAL SLOW IVP PRN ×8 (00:55→20:40)
[2020-03-25] MEDS ORDERED: levETIRAcetam in NS 1,500 MG in Premix Bag 1 BAG IVPB SCH ×2 (01:15)
[2020-03-25] MEDS ORDERED: Labetalol HCl 100 MG/20 ML VIAL SLOW IVP ONE (01:40)
[2020-03-25] MEDS ORDERED: Labetalol HCl 100 MG/20 ML VIAL SLOW IVP SCH (01:45)
[2020-03-25] MEDS ORDERED: Lacosamide 400 MG in Sodium Chloride 0.9% 50 ML IVPB SCH (02:00)
[2020-03-25] MEDS ORDERED: diphenhydrAMINE 50 MG/ML VIAL ONE (03:11)
[2020-03-25] MEDS ORDERED: EPINEPHrine 1 MG/ML AMP ONE (03:11)
--- NOTE | 2020-03-25 03:43 | PDOC.BPN ---
<GabrielJacqueline J - Last Filed: 03/25/20 03:35> - Brief Progress Note Patient with many seizures this evening. @ 1829 had an 8 min seizure and was given 2mg Ativan, vitals WNL with exception of mildly tachycardia @ 1930 patient had 2 more seizures that lasted apprx 4 [address] Rios at bedside. 4mg total of Ativan given total in addition to 1g Keppra. EKG was obtained and lab work. Labs WNL, EKG showed Aflutter with rate up to 150s otherwise vitals WNL @ 2304 patient had another seizure lasting apprx 6 minutes, vitals WNL with the exception of tachycardia. As per tele, patient in sinus tach @ 0051 Code Green was called: residents Dr Rios and Dr Sterling to bedside. Patient had 3 additional seizures requiring 3x dosing of 0.5g Ativan. She de sats into the 80s SpO2 and then comes back to the 90s on her own but a non rebreather was placed on patient. She did have return to mentation between these episodes. Dr Christensen was called who suggested 1500g Keppra and to add Phosphenytoin is continues to seize. Sinus tach during this episode Patient's seizures appear to be tonic-clonic during the code green. Patient is unresponsive during seizure episodes and post ictal once they stop. Will transfer to the ICU for closer monitoring because of concern for intubation given patient's history of intubation in the ED 2/2 seizures and hypoxia. Patient endorses anaphylaxis with Vinpat, will monitor for anaphylaxis if having to add Phosphenytoin. <Christiano Sandy W - Last Filed: 03/25/20 06:57> - Brief Progress Note I saw and evaluate her at the time of the CODE green. Patient was post ictal at that time but slowly improved. Decision was made to move to ICU for closer monitoring and if she continued to have neurological events, we would proceed with intubation. Patient ended up having several more episodes of seizure activity in the ICU with desaturation into the low 80s. Dr. Sterling PGY3 spoke with neurology who was hesitant to intubate but agreed after the most recent round of events. Since she was recently intubated, I had the residents have anesthesia a ssist with the intubation should we encounter laryngeal edema from her prior intubation/aspiration from seizure events. Neurology is now recommending transfer to higher level of care for continuous EEG monitoring. We will continue respiratory support in ICU and start on a propofol gtt to help with recurrent and refractory seizures. We will initiate transfer now. Approximately 75 minutes of critical care time spent by me on 03/25.
[2020-03-25] MEDS ORDERED: methylPREDNISolone Sod Succ/PF 125 MG/2 ML VIAL IVP SCH (03:45)
[2020-03-25] MEDS ORDERED: EPINEPHrine 1 MG/ML AMP IM SCH (03:45)
[2020-03-25] MEDS ORDERED: diphenhydrAMINE 50 MG/ML VIAL IVP SCH (03:45)
[2020-03-25] MEDS ORDERED: Bacteriostatic Water 30 ML VIAL FS PRN (03:45)
[2020-03-25] MEDS ORDERED: Propofol 1,000 MG/100 ML VIAL IV ONE (06:15)
--- NOTE | 2020-03-25 06:37 | CON ---
DATE OF CONSULTATION: 03/25/2020 TIME OF SERVICE: 0545. CONSULTING PHYSICIAN: Narinder Riley MD. REASON FOR CONSULTATION: 16 weeks with seizures and pseudoseizures. HISTORY OF PRESENT ILLNESS: Please see previous H and P on the patient as well as many progress notes. It is obvious that she has a history of both pseudoseizures but also actual generalized clonic-tonic seizures and has had these to the point where she has been suffering status epilepticus at times with hypoxia and requiring intubation. She had several seizures on the floor, this evening has been returned to the ICU. MEDICATIONS, SURGICAL AND MEDICAL HISTORY: As indicated in H and Ps. From an MICROBIOLOGY TECHNICIAN standpoint, issues include the patient's current at 16 weeks gestation. She had a first trimester ultrasound performed on the , which revealed her to be a composite gestational age of 16 weeks 0 days. 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 PLAN: Recommend treating seizures as needed. is not a contraindication of any of her current medications that I am aware of, while benzodiazepines are category D; if necessary to control status epilepticus, maternal welfare must be considered over . Would administer 5 mg of folic acid a day to help offset any epileptic syndrome in fetus and needs to follow up with high-risk [facility] obstetrical care. Job ID: [id number]
[2020-03-25] MEDS ORDERED: Morphine 2 MG/ML VIAL SLOW IVP PRN (07:00)
[2020-03-25] MEDS ORDERED: Propofol BOLUS 1,000 MG/100 ML VIAL IV PRN (07:00)
[2020-03-25] MEDS ORDERED: Ventilator Sedation Protocol 1 EACH FS SCH (07:00)
[2020-03-25] MEDS ORDERED: Fentanyl CADD 100 ML IV SCH (07:00)
[2020-03-25] MEDS ORDERED: DISCONTINUE PREVIOUS NARCOTIC PAIN MEDICATIONS AND BENZODIAZEPINES FS SCH (07:00)
[2020-03-25] MEDS ORDERED: Lorazepam 2 MG/ML VIAL SLOW IVP PRN (07:00)
[2020-03-25] MEDS ORDERED: Fentanyl BOLUS 250 ML IVPB PRN (07:00)
[2020-03-25 07:02] LABS: Actual Bicarbonate (HCO3a) 19.2 mEq/L (22-28); Base Excess (BEa) -4.9 mEq/L (-2.0 to +3.0); Carboxyhemoglobin (COHb) 0.3 gm% (0.0-3.0); Hemoglobin (Hb) 10.2 g/dL (11.4-15.4)
[2020-03-25 07:03] LABS: O2 Tension (PaO2), arterial 55.9 mmHg (80.0-100.0); Puncture Site RRA
--- NOTE | 2020-03-25 07:50 | PRG ---
DATE OF SERVICE: 03/25/2020 SUBJECTIVE: Martell Rodriguez was intubated for reported seizures. There was no EEG monitoring connected to her during these episodes. OBJECTIVE: VITAL SIGNS: She is afebrile. Heart rate is 112 now, blood pressure LUNGS: Clear. HEART: Regular rhythm. ABDOMEN: Soft. LABORATORY DATA: Blood gas is pending. There is no new lab today other than a glucose at 1 o'clock this morning. IMPRESSION: Recurrent seizures requiring intubation. PLAN: She has hospitalized last year with a diagnosis of pseudoseizures. It is incredibly difficult at the bedside to determine whether seizures are real or not without continuous EEG monitoring one cannot sort through this. If this cannot be done, she needs to be transferred to a center with continuous EEG monitoring. Critical care time 30 min. Job ID: [id number] MTDD
--- NOTE | 2020-03-25 07:56 | PDOC.BPN ---
- Brief Progress Note Encounter Date: 03/25/20 Received multiple calls throughout the night between 1200- 6:30 am from the resident about the Ms. Rodriguez status. Per resident, several seizure like episodes characterized by shaking of the upper extremities and at times generalized shaking lasting a minute or two . Per resident, she is postictal but at times had normal mentation between the episodes and was able to provide history in between seizures. For instance, patient was able to tell the resident that she had anaphylactic reaction to v impat when vimpat load was suggested after increasing the dose of Keppra. This was 2 minutes after a generalized tonic clonic seizure and several seizures in the last few hours which raises suspicion that she may have concomittant non- epileptic spells along with seizures since patients very unlikely remember these details postictally. 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 Suggested close monitoring in ICU to monitor respiratory status and additional load of fosphenytoin. since high risk due to and POTS complicated by episodes of tachycardia and hypoxia. Her EEG has minor cortical irritability with rare midline and parasagittal spikes. Management is complicated due to episodes of tachycardia and hypoxia associated with generalized shaking and her history of POTS with 16 weeks gestation. She was intubated to protect airway because of destaturation and sedated with propofol and currently on keppra and fosphenytoin polytherapy. We do not have the capability of live continuous video EEG monitoring at our facility and she needs to be transferred to the other facility for higher level of care. In the meantime, we will arrange for EEG to characterize her seizures and optimize management.
--- NOTE | 2020-03-25 08:19 | RAD ---
EXAM: Single view of the chest HISTORY: Respiratory failure status post intubation COMPARISON: 03/23/2020 FINDINGS: Single view of the chest shows a normal sized cardiomediastinal silhouette. The lines and tubes are unchanged in position. Multiple overlying hemodynamic monitors limit evaluation on this exam. There is no evidence of consolidation, mass, or pleural effusion. No acute osseous abnormality . IMPRESSION: Appropriate position of lines and tubes
--- NOTE | 2020-03-25 08:25 | PDOC.BPN ---
- Brief Progress Note Encounter Date: 03/25/20 Encounter Time: 08:00 At approx 0615 patient intubated with current propofol sedation. At approx 0700 patient had episode of right arm jerking, HR into 140s and desaturation down to 83%. Patient's FiO2 was increased to 100% with HR then returning to 100s and O2 sat of 93%. Jerking stopped. Patient was not biting tube and did not otherwise appear agitated at that time. Will increase propofol drip to 20 mcg/kg/min dosing for status epilepticus as blood pressure tolerates. Discussed case with CHRISSY Le at [facility] about transfer of care to their facility. They do not have a neuro icu and feel that that higher level of care is warranted. Recommended that transfer be to [facility] or to [facility] as these facilities would take a prior to 20 weeks gestation (patient is 16.2 weeks today). Will instruct transfer center to begin initiating transfer to [facility].
[2020-03-25] MEDS ORDERED: Lactated Ringer's 1,000 ML IV SCH (08:30)
--- NOTE | 2020-03-25 08:30 | PDOC.FM ---
- Subjective Subjective: Patient intubated and sedated in CCU. ROS unobtainable. Currently no agitation. EEG in place. Propofol gtt set to 15 mcg/kg/min, titrating up as tolerated. Both [facility] and [facility] are full to capacity. Will attempt transfer to [facility]. - Objective MAR Reviewed: Yes Vital Signs & Weight: Vital Signs (12 hours) Temp Pulse Pulse Pulse Pulse Pulse Pulse 03/25/20 06:50 112 H 03/25/20 04:00 98.7 F 03/25/20 01:02 150 H 136 H 119 H 120 H 109 H Pulse Pulse Pulse Pulse Pulse Pulse Pulse 03/25/20 06:50 03/25/20 04:00 03/25/20 01:02 118 H 128 H 125 H 130 H 107 H 111 H 112 H Pulse Pulse Pulse Pulse Resp Resp Resp 03/25/20 06:50 03/25/20 04:00 03/25/20 01:02 111 H 120 H 123 H 117 H 12 20 18 Resp Resp Resp Resp Resp BP BP 03/25/20 06:50 03/25/20 04:00 03/25/20 01:02 20 18 22 H 12 20 116/59 L 119/59 L BP BP BP BP BP BP BP 03/25/20 06:50 03/25/20 04:00 03/25/20 01:02 125/62 134/65 125/57 L 130/64 126/64 134/69 125/58 L BP BP BP BP BP BP BP 03/25/20 06:50 03/25/20 04:00 03/25/20 01:02 121/68 117/64 117/61 117/56 L 114/55 L 118/61 118/60 Pulse Ox Pulse Ox Pulse Ox Pulse Ox Pulse Ox Pulse Ox Pulse Ox 03/25/20 06:50 03/25/20 04:00 97 03/25/20 01:02 85 L 100 100 100 100 96 Pulse Ox Pulse Ox Pulse Ox Pulse Ox Pulse Ox Pulse Ox Pulse Ox 03/25/20 06:50 03/25/20 04:00 03/25/20 01:02 95 98 99 100 100 99 99 Pulse Ox Pulse Ox Pulse Ox Pulse Ox 03/25/20 06:50 03/25/20 04:00 03/25/20 01:02 98 99 99 99 Weight Weight 90 kg Most Recent Monitor Data Heart Rate from ECG 94 NIBP 117/68 NIBP BP-Mean 84 Respiration from ECG 14 SpO2 99 I&O: 03/24/20 03/25/20 03/26/20 06:59 06:59 06:59 Intake Total 3583 1250 Output Total 2980 1100 Balance 603 150 Result Diagrams: 03/24/20 20:01 03/24/20 20:01 Phys Exam - Physical Examination Constitutional: NAD HEENT: moist MMs Neck: supple Respiratory: clear to auscultation bilateral Cardiovascular: no significant murmur tachycardic Gastrointestinal: no distention Musculoskeletal: no edema, pulses present Skin: no rash Dx/Plan (1) Status epilepticus Code(s): G40.901 - EPILEPSY, UNSP, NOT INTRACTABLE, WITH STATUS EPILEPTICUS Status: Acute (2) Second trimester Code(s): Z34.92 - ENCNTR FOR SUPRVSN OF NORMAL PREG, UNSP, SECOND TRIMESTER Status: Acute (3) POTS (postural orthostatic tachycardia syndrome) Code(s): I49.8 - OTHER SPECIFIED CARDIAC ARRHYTHMIAS Status: Acute (4) Sinus tachycardia Code(s): R00.0 - TACHYCARDIA, UNSPECIFIED Status: Acute - Plan Plan: Status Epilepticus - hx of epilepsy vs pseudoseizure - has had 7 seizures since 3AM, altered mental status between most recent seizures--see earlier event note - s/p recurrent seizures overnight 03/24-03/25 requiring propofol sedation and intubation -previously intubated on 03/23 in ED with extubation later on 03/23 - Keppra 1500 mg BID - Fosphenytoin 1000 mg x 1 on 03/25 - currently EEG being completed again - neuro consulted--Dr. Christensen, appreciate recs -recommends transfer to higher level of care for continuous EEG, will attempt to arrange transfer this morning -declined by [facility], [facility], [facility]; will attempt [facility] - Pulm consulted for CCU admission--Dr. Connor, appreciate recs sIUP in Second Trimester - 16.2 wk by elyse with NILAM of 09/07/2020 - folic acid 5mg daily - oncology research rn consulted--Dr. Riley, appreciate recs -spoke with M Dr. Royal at [facility], states that should not be a factor with this transfer to neuro icu due to gestation being prior to 20 weeks POTS (Postural Orthostatic Tachycardia Syndrome) -aware Hx of SVT - seen in ED along with seizure like activity, has had sinus tachycardia since - tele monitoring CODE status: FULL Diet: NPO VTE: SCDs PCP: none Dispo: Guarded, admitted to inpatient in CCU. Will place on EEG monitoring again today, attempting transfer to higher level of care today. Addendum - Attending - Attending Attestation Date/Time: 03/25/20 3636 I personally evaluated the patient and discussed the management with Dr. Velez. I agree with the History, Examination, Assessment and Plan documented above with any addition or exceptions noted below.
[2020-03-25] MEDS ORDERED: LEVETIRACETAM IVPB SCH (09:00)
[2020-03-25] MEDS ORDERED: SODIUM CHLORIDE 0.9% IVPB SCH (09:00)
[2020-03-25] MEDS ORDERED: NS IVPB SCH (09:00)
[2020-03-25] MEDS: Folic Acid 1 MG TAB PO SCH (10:59)
--- NOTE | 2020-03-25 12:30 | PDOC.NEUPN ---
- Subjective Encounter Date: 03/25/20 Subjective: Patient is intubated and sedated due to several seizures at night - Objective Vital Signs & Weight: Vital Signs (12 hours) Temp Pulse Pulse Pulse Pulse Pulse Pulse 03/25/20 10:23 102 H 03/25/20 09:13 112 H 03/25/20 06:50 112 H 03/25/20 04:00 98.7 F 03/25/20 01:02 150 H 136 H 119 H 120 H 109 H Pulse Pulse Pulse Pulse Pulse Pulse Pulse 03/25/20 10:23 03/25/20 09:13 03/25/20 06:50 03/25/20 04:00 03/25/20 01:02 118 H 128 H 125 H 130 H 107 H 111 H 112 H Pulse Pulse Pulse Pulse Resp Resp Resp 03/25/20 10:23 03/25/20 09:13 03/25/20 06:50 03/25/20 04:00 03/25/20 01:02 111 H 120 H 123 H 117 H 12 20 18 Resp Resp Resp Resp Resp BP BP 03/25/20 10:23 97/55 L 03/25/20 09:13 03/25/20 06:50 03/25/20 04:00 03/25/20 01:02 20 18 22 H 12 20 116/59 L BP BP BP BP BP BP BP 03/25/20 10:23 03/25/20 09:13 03/25/20 06:50 03/25/20 04:00 03/25/20 01:02 119/59 L 125/62 134/65 125/57 L 130/64 126/64 134/69 BP BP BP BP BP BP BP 03/25/20 10:23 03/25/20 09:13 03/25/20 06:50 03/25/20 04:00 03/25/20 01:02 125/58 L 121/68 117/64 117/61 117/56 L 114/55 L 118/61 BP Pulse Ox Pulse Ox Pulse Ox Pulse Ox Pulse Ox Pulse Ox 03/25/20 10:23 03/25/20 09:13 03/25/20 06:50 03/25/20 04:00 97 03/25/20 01:02 118/60 85 L 100 100 100 100 Pulse Ox Pulse Ox Pulse Ox Pulse Ox Pulse Ox Pulse Ox Pulse Ox 03/25/20 10:23 03/25/20 09:13 03/25/20 06:50 03/25/20 04:00 03/25/20 01:02 96 95 98 99 100 100 99 Pulse Ox Pulse Ox Pulse Ox Pulse Ox Pulse Ox 03/25/20 10:23 03/25/20 09:13 03/25/20 06:50 03/25/20 04:00 03/25/20 01:02 99 98 99 99 99 Weight Weight 198 lb 6.656 oz Most Recent Monitor Data Heart Rate from ECG 93 NIBP 111/68 NIBP BP-Mean 82 Respiration from ECG 18 SpO2 100 I&O: 03/24/20 03/25/20 03/26/20 06:59 06:59 06:59 Intake Total 3583 1250 Output Total 2980 1100 Balance 603 150 Result Diagrams: 03/24/20 20:01 03/24/20 20:01 Additional Labs: Accuchecks 03/25/20 01:15 POC Glucose 81 Radiology Reviewed by me: Yes EKG Reviewed by me: Yes ROS - Review of Systems ROS unobtainable: due to endotracheal tube - Medication Medications: Active Medications Generic Name Dose Route Start Last Admin Trade Name Freq PRN Reason Stop Dose Admin Acetaminophen 650 mg 03/23/20 06:16 03/24/20 07:36 Acetaminophen 325 Mg Tab PO 650 mg Q4H PRN Administration Headache/Fever/Mild Pain (1-3) Al Hydroxide/Mg Hydroxide 30 ml 03/24/20 07:37 03/24/20 11:23 Mag-Al 1200 Mg/1200 Mg/30 Ml Udcup PO 30 ml Q8H PRN Administration Constipation Calcium Carbonate 1,000 mg 03/24/20 06:01 03/24/20 22:03 Calcium Carbonate 500 Mg Chewtab PO 1,000 mg BID PRN Administration Heartburn or Indigestion Folic Acid 4 mg 03/24/20 09:00 03/25/20 10:59 Folic Acid 1 Mg Tab PO 4 mg DAILY GRZEGORZ Administration Levetiracetam 1,500 mg/ Sodium 200 mls @ 347.826 mls/hr 03/25/20 09:00 03/25/20 11:03 Chloride IVPB 200 mls BID GRZEGORZ Administration Lorazepam 2 mg 03/23/20 17:22 03/25/20 06:02 Lorazepam 2 Mg/Ml Vial SLOW IVP 2 mg Q1H PRN Administration seizure >2min Lorazepam 1 mg 03/24/20 20:12 03/25/20 02:16 Lorazepam 2 Mg/Ml Vial SLOW IVP 1 mg Q10MIN PRN Administration Seizures Ondansetron HCl 4 mg 03/23/20 06:16 03/24/20 07:37 Ondansetron Odt 4 Mg Tab PO 4 mg Q6H PRN Administration Nausea/Vomiting Sodium Chloride 10 ml 03/23/20 06:16 03/24/20 07:37 Flush - Normal Saline 10 Ml Syringe IVF 10 ml PRN PRN Administration Saline Flush - Exam General Appearance: NAD Eye: PERRL ENT: normocephalic atraumatic Neck: supple Respiratory: CTAB Cardiovascular: RRR Gastrointestinal: soft Extremities: no cyanosis Skin: normal turgor Neurological: no new deficit Musculoskeletal: normal tone, no muscle wasting PSYCH: somnolent (Intubated and sedated) Results - Labs Result Diagrams: 03/24/20 20:01 03/24/20 20:01 Lab results: WBC 11.3 thou/uL (4.8-10.8) H 03/24/20 20:01 Hgb 10.5 g/dL (12.0-16.0) L 03/24/20 20:01 Hct 32.2 % (36.0-47.0) L 03/24/20 20:01 MCV 79.9 fL (78.0-98.0) 03/24/20 20:01 Plt Count 291 thou/uL (130-400) 03/24/20 20:01 Band Neuts % (Manual) 6 % (5-11) 03/24/20 20:01 ABG pH 7.40 (7.35-7.45) 03/25/20 06:50 ABG pCO2 32.0 mmHg (35.0-45.0) L 03/25/20 06:50 ABG pO2 55.9 mmHg (80.0-100.0) L* 03/25/20 06:50 Sodium 136 mmol/L (136-145) 03/24/20 20:01 Potassium 3.4 mmol/L (3.5-5.1) L 03/24/20 20:01 Chloride 109 mmol/L (98-107) H 03/24/20 20:01 Carbon Dioxide 16 mmol/L (22-29) L 03/24/20 20:01 BUN Less than 4 mg/dL (7.0-18.7) L 03/24/20 20:01 Creatinine 0.58 mg/dL (0.6-1.1) L 03/24/20 20:01 Glucose 103 mg/dL (70-105) 03/24/20 20:01 Calcium 9.1 mg/dL (7.8-10.44) 03/24/20 20:01 Total Bilirubin 0.4 mg/dL (0.2-1.2) 03/24/20 20: AST 11 U/L (5-34) 03/24/20 20: ALT 11 U/L (8-55) 03/24/20 20: Alkaline Phosphatase 83 U/L (40-100) 03/24/20 20:01 Serum Total Protein 6.7 g/dL (6.0-8.3) 03/24/20 20: Albumin 3.5 g/dL (3.5-5.0) 03/24/20 20:01 PN A/P (1) Seizure disorder Code(s): G40.909 - EPILEPSY, UNSP, NOT INTRACTABLE, WITHOUT STATUS EPILEPTICUS Status: Acute (2) Seizure-like activity Code(s): R56.9 - UNSPECIFIED CONVULSIONS Status: Acute (3) Sinus tachycardia Code(s): R00.0 - TACHYCARDIA, UNSPECIFIED Status: Acute (4) POTS (postural orthostatic tachycardia syndrome) Code(s): I49.8 - OTHER SPECIFIED CARDIAC ARRHYTHMIAS Status: Acute - Plan Daily Plan: DVT proph w/SCDs Ms. 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 Apparently, she st opped taking Keppra after she became and currently is 16 weeks . She was extubated yesterday and no further seizures reported . Seizures most likely due to discontinuation of Keppra which was resumed during this admission. She was successfully extubated on 03/24/2020 and transferred to the floor later in the evening. Received multiple calls throughout the night between 1200- 6:30 am from the resident about the Ms. Rodriguez status. Per resident, several seizure like episodes characterized by shaking of the upper extremities and at times generalized shaking lasting a minute or two . Per resident, she is postictal but at times had normal mentation between the episodes and was able to provide history in between seizures. For instance, patient was able to tell the resident that she had anaphylactic reaction to vimpat when vimpat load was suggested after increasing the dose of Keppra. This was 2 minutes after a generalized tonic clonic seizure and several seizures in the last few hours which raises suspicion that she may have concomittant non- epileptic spells along with seizures since patients very unlikely remember these details postictally. 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 Suggested close monitoring in ICU to monitor respiratory status and additional load of fosphenytoin. since high risk due to and POTS complicated by episodes of tachycardia and hypoxia. Her EEG has minor cortical irritability with rare midline and parasagittal spikes. Management is complicated due to episodes of tachycardia and hypoxia associated with generalized shaking and her history of POTS with 16 weeks gestation. She was intubated to protect airway because of destaturation and sedated with propofol and currently on keppra and fosphenytoin polytherapy. We do not have the capability of live continuous video EEG monitoring at our facility and she needs to be transferred to the other facility for higher level of care. In the meantime, we will arrange for EEG to characterize her seizures and optimize management. Continue Keppra and Ativan as needed for seizures. Neurochecks every 2 hours. Continue medical management per primary team and pulmonology. Plan discussed in detail with the nursing staff
[2020-03-25] MEDS: Propofol 1,000 MG/100 ML VIAL IV PRN ×2 (14:20→21:27)
[2020-03-25] MEDS: Acetaminophen 325 MG TAB PO PRN (16:40)
[2020-03-25] MEDS: levETIRAcetam in NS 1,500 MG in Premix Bag 1 BAG IVPB SCH (20:36)
[2020-03-26] MEDS: Propofol 1,000 MG/100 ML VIAL IV PRN ×3 (02:31→11:06)
[2020-03-26] MEDS: Lorazepam 2 MG/ML VIAL SLOW IVP PRN (03:21)
--- NOTE | 2020-03-26 08:46 | PDOC.FM ---
- Subjective Subjective: Patient intubated and sedated in CCU. ROS unobtainable. Currently having seizure-like activity with both arms jerking, also had 15 minute period earlier this morning with about 3-4 consecutive periods of seizure-like activity. EEG in place. Propofol gtt set to 50 mcg/kg/min, titrating up as tolerated. Patient was approved for transfer to [facility] on 03/25, is on waiting list for a bed there. - Objective MAR Reviewed: Yes Vital Signs & Weight: Vital Signs (12 hours) Temp Pulse Resp BP Pulse Ox 03/26/20 08:00 100.1 F H 03/26/20 07:38 121 H 118/65 03/26/20 07:00 98 03/26/20 06:00 22 H 03/26/20 04:00 98.9 F 24 H 03/26/20 02:35 98 103/54 L 03/26/20 02:00 24 H 03/26/20 00:00 22 H 03/25/20 22:09 92 105/38 L 03/25/20 22:00 24 H Weight Admit Weight 84.899 kg Weight 92 kg Most Recent Monitor Data Heart Rate from ECG 113 NIBP 117/66 NIBP BP-Mean 83 Respiration from ECG 24 SpO2 98 I&O: 03/25/20 03/26/20 03/27/20 06:59 06:59 06:59 Intake Total 1250 2219 Output Total 1100 2995 160 Balance 150 -776 -160 Result Diagrams: 03/24/20 20:01 03/24/20 20:01 Phys Exam - Physical Examination Constitutional: NAD HEENT: moist MMs Neck: supple Respiratory: clear to auscultation bilateral Cardiovascular: no significant murmur tachycardic Gastrointestinal: soft Musculoskeletal: pulses present jerking of bilateral arms, eyes twitching Deviation from normal: intubated & sedated Skin: no rash, normal turgor Dx/Plan (1) Status epilepticus Code(s): G40.901 - EPILEPSY, UNSP, NOT INTRACTABLE, WITH STATUS EPILEPTICUS Status: Acute (2) Second trimester Code(s): Z34.92 - ENCNTR FOR SUPRVSN OF NORMAL PREG, UNSP, SECOND TRIMESTER Status: Acute (3) POTS (postural orthostatic tachycardia syndrome) Code(s): I49.8 - OTHER SPECIFIED CARDIAC ARRHYTHMIAS Status: Acute (4) Sinus tachycardia Code(s): R00.0 - TACHYCARDIA, UNSPECIFIED Status: Acute - Plan Plan: Status Epilepticus - hx of epilepsy vs pseudoseizure - multiple seizures with CODE green on 03/25--see earlier event note - s/p recurrent seizures overnight 03/24-03/25 requiring propofol sedation and intubation -previously intubated on 03/23 in ED with extubation later on 03/23 -still having recurrent seizures while on propofol sedation, drip currently titrated up to 50 mcg/min - Keppra 1500 mg BID - Fosphenytoin 1000 mg x 1 on 03/25 - currently EEG being completed again - neuro consulted--Dr. Christensen, appreciate recs -recommends transfer to higher level of care for continuous EEG -declined by [facility], [facility], [facility] -accepted for Neuro ICU admission at [facility], on waitlist for bed currently - Pulm consulted for CCU admission--Dr. Connor, appreciate recs sIUP in Second Trimester - 16.3 wk by elyse with NILAM of 09/07/2020 - folic acid 5mg daily - head of conservation consulted--Dr. Riley, appreciate recs -spoke with MFM Dr. Royal at [facility], states that should not be a factor with this transfer to neuro icu due to gestation being prior to 20 weeks POTS (Postural Orthostatic Tachycardia Syndrome) -aware Hx of SVT - seen in ED along with seizure like activity, has had sinus tachycardia since - tele monitoring CODE status: FULL Diet: NPO VTE: SCDs GI PPx: Protonix PCP: none Dispo: Guarded, admitted to inpatient in CCU. Will place on EEG monitoring again today, pending transfer to higher level of care today once bed available. Addendum - Attending - Attending Attestation Date/Time: 03/26/20 [id number] I personally evaluated the patient and discussed the management with Dr. Velez. I agree with the History, Examination, Assessment and Plan documented above with any addition or exceptions noted below. We appreciate Dr Christensen's care. She reports no seizure activity noted on EEG. EEG has been concurrent with seizure-like activity confirmed that her episodes a re not true seizures. We will coordinate with Amparo to reduce seizure meds and with CC to wean form vent. We will restart her psychiatric meds as able.
[2020-03-26] MEDS: levETIRAcetam in NS 1,500 MG in Premix Bag 1 BAG IVPB SCH (08:54)
[2020-03-26] MEDS: Folic Acid 1 MG TAB PO SCH (08:56)
[2020-03-26] MEDS: Pantoprazole 40 MG VIAL IVP SCH (08:57)
--- NOTE | 2020-03-26 09:31 | PDOC.EEG ---
Neurology EEG Report - Report Report: PROLONGED EEG This EEG was performed using 24 channel [employer] video EEG machine with 24 disc electrodes. Digital analysis of the EEG was done for spike and seizure detection which revealed no abnormalities. This was an extended 24 hours 12 minutes of EEG recording. Background: The posterior background rhythm is not observed. Excessive beta activity intermixed with the background. Hyperventilation: Not performed. Photic Stimulation: No significant response. Sleep: Drowsiness and sleep are observed. SPELLS: More than 10 spells captured on the video EEG recording lasting for few to several minutes characterized by right arm shaking with eyes closed, side to side head shaking and at times jerking of the head, trunk with shaking of both upper extremities. EEG showed muscle artifact but no electrograhic seizure activity was noted during these episodes. EEG Diagnosis: Generalized irregular theta activity with superimposed beta seen during the recording. Absence of posterior background rhythm. Clinical Interpretation: This EEG is consistent with moderate generalized nonspecific cerebral dysfunction. 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
--- NOTE | 2020-03-26 10:05 | PDOC.NEUPN ---
- Subjective Encounter Date: 03/26/20 Subjective: Multiple spells captured on video EEG recording which were non-epileptic in nature. - Objective Vital Signs & Weight: Vital Signs (12 hours) Temp Pulse Resp BP Pulse Ox 03/26/20 08:00 100.1 F H 03/26/20 07:38 121 H 118/65 03/26/20 07:00 98 03/26/20 06:00 22 H 03/26/20 04:00 98.9 F 24 H 03/26/20 02:35 98 103/54 L 03/26/20 02:00 24 H 03/26/20 00:00 22 H 03/25/20 22:09 92 105/38 L 03/25/20 22:00 24 H Weight Admit Weight 187 lb 2.72 oz Weight 202 lb 13.204 oz Most Recent Monitor Data Heart Rate from ECG 108 NIBP 116/55 NIBP BP-Mean 75 Respiration from ECG 25 SpO2 100 I&O: 03/25/20 03/26/20 03/27/20 06:59 06:59 06:59 Intake Total 1250 2219 100 Output Total 1100 2995 160 Balance 150 -776 -60 Result Diagrams: 03/24/20 20:01 03/24/20 20:01 Radiology Reviewed by me: Yes EKG Reviewed by me: Yes ROS - Review of Systems ROS unobtainable: due to endotracheal tube (sedated) - Medication Medications: Active Medications Generic Name Dose Route Start Last Admin Trade Name Freq PRN Reason Stop Dose Admin Acetaminophen 650 mg 03/23/20 06:16 03/25/20 16:40 Acetaminophen 325 Mg Tab PO 650 mg Q4H PRN Administration Headache/Fever/Mild Pain (1-3) Al Hydroxide/Mg Hydroxide 30 ml 03/24/20 07:37 03/24/20 11:23 Mag-Al 1200 Mg/1200 Mg/30 Ml Udcup PO 30 ml Q8H PRN Administration Constipation Calcium Carbonate 1,000 mg 03/24/20 06:01 03/24/20 22:03 Calcium Carbonate 500 Mg Chewtab PO 1,000 mg BID PRN Administration Heartburn or Indigestion Folic Acid 4 mg 03/24/20 09:00 03/26/20 08:56 Folic Acid 1 Mg Tab PO 4 mg DAILY GRZEGORZ Administration Levetiracetam 1,500 mg/ Device 100 mls @ 173.913 mls/hr 03/25/20 21:00 03/26/20 08:54 IVPB 100 mls BID GRZEGORZ Administration Lorazepam 2 mg 03/23/20 17:22 03/26/20 03:21 Lorazepam 2 Mg/Ml Vial SLOW IVP 2 mg Q1H PRN Administration seizure >2min Lorazepam 1 mg 03/24/20 20:12 03/25/20 02:16 Lorazepam 2 Mg/Ml Vial SLOW IVP 1 mg Q10MIN PRN Administration Seizures Ondansetron HCl 4 mg 03/23/20 06:16 03/24/20 07:37 Ondansetron Odt 4 Mg Tab PO 4 mg Q6H PRN Administration Nausea/Vomiting Ondansetron HCl 4 mg 03/23/20 06:16 03/25/20 15:52 Ondansetron Pf 4 Mg/2 Ml Vial IVP 4 mg Q6H PRN Administration Nausea/Vomiting Pantoprazole Sodium 40 mg 03/26/20 09:00 03/26/20 08:57 Pantoprazole 40 Mg Vial IVP 40 mg DAILY GRZEGORZ Administration Propofol 1,000 mg 03/25/20 07:00 03/26/20 06:35 Propofol 1,000 Mg/100 Ml Vial IV 04/24/20 07:00 1,000 mg INF PRN Administration TO ACHIEVE GOAL RASS Protocol Sodium Chloride 10 ml 03/23/20 06:16 03/24/20 07:37 Flush - Normal Saline 10 Ml Syringe IVF 10 ml PRN PRN Administration Saline Flush - Exam General Appearance: NAD Eye: PERRL ENT: normocephalic atraumatic Neck: supple Respiratory: CTAB Cardiovascular: RRR Gastrointestinal: soft Extremities: no cyanosis Skin: normal turgor Neurological: no new deficit Musculoskeletal: normal tone, no muscle wasting PSYCH: not oriented, somnolent, lethargic Results - Labs Result Diagrams: 03/24/20 20:01 03/24/20 20:01 Lab results: WBC 11.3 thou/uL (4.8-10.8) H 03/24/20 20:01 Hgb 10.5 g/dL (12.0-16.0) L 03/24/20 20:01 Hct 32.2 % (36.0-47.0) L 03/24/20 20:01 MCV 79.9 fL (78.0-98.0) 03/24/20 20:01 Plt Count 291 thou/uL (130-400) 03/24/20 20:01 Band Neuts % (Manual) 6 % (5-11) 03/24/20 20:01 ABG pH 7.40 (7.35-7.45) 03/25/20 06:50 ABG pCO2 32.0 mmHg (35.0-45.0) L 03/25/20 06:50 ABG pO2 55.9 mmHg (80.0-100.0) L* 03/25/20 06:50 Sodium 136 mmol/L (136-145) 03/24/20 20:01 Potassium 3.4 mmol/L (3.5-5.1) L 03/24/20 20: Chloride 109 mmol/L (98-107) H 03/24/20 20:01 Carbon Dioxide 16 mmol/L (22-29) L 03/24/20 20:01 BUN Less than 4 mg/dL (7.0-18.7) L 03/24/20 20:01 Creatinine 0.58 mg/dL (0.6-1.1) L 03/24/20 20:01 Glucose 103 mg/dL (70-105) 03/24/20 20: Calcium 9.1 mg/dL (7.8-10.44) 03/24/20 20:01 Total Bilirubin 0.4 mg/dL (0.2-1.2) 03/24/20 20:01 AST 11 U/L (5-34) 03/24/20 20: ALT 11 U/L (8-55) 03/24/20 20:01 Alkaline Phosphatase 83 U/L (40-100) 03/24/20 20:01 Serum Total Protein 6.7 g/dL (6.0-8.3) 03/24/20 20: Albumin 3.5 g/dL (3.5-5.0) 03/24/20 20:01 PN A/P (1) Seizure disorder Code(s): G40.909 - EPILEPSY, UNSP, NOT INTRACTABLE, WITHOUT STATUS EPILEPTICUS Status: Acute (2) Seizure-like activity Code(s): R56.9 - UNSPECIFIED CONVULSIONS Status: Acute (3) Sinus tachycardia Code(s): R00.0 - TACHYCARDIA, UNSPECIFIED Status: Acute (4) POTS (postural orthostatic tachycardia syndrome) Code(s): I49.8 - OTHER SPECIFIED CARDIAC ARRHYTHMIAS Status: Acute - Plan Daily Plan: speech therapy, DVT proph w/SCDs Ms. Rodriguez is a 19 year old with history of POTS, seizure disorder and also history of pseudoseizures presented with increased seizure like activity with hypoxia and sinus tachycardia requiring intubation. Apparently, she stopped taking Keppra after she became and currently is 16 weeks . Seizures most likely due to discontinuation of Keppra which was resumed during this admission. She was successfully extubated on 03/24/2020 and transferred to the floor later in the evening. She was re-intubated on 03/26/2020 because of episodes of tachycardia and hypoxia associated with right arm and generalized shaking episodes with atypical semiology . She was a high risk because of history of POTS with 16 weeks gestation. 24 hours EEG from 03/25/2020 to 03/26/2020 captured several spells on the video with EEG recording . The spells spells was characterized by episodes of right arm shaking with eyes closed, head [id number] head shaking, and some stiffness Talley's characterized by right arm shaking followed by left arm jerking with abnormal movements of the tongue and shaking of the legs. All spells were nonepileptic in nature. Her EEG has minor cortical irritability with rare midline and parasagittal spikes. We will continue Keppra she was diagnosed with epilepsy but current spells captured on the video EEG recording and these are pseudoseizures. Neurochecks every 2 hours. Continue medical management per primary team and pulmonology. Plan discussed in detail with the nursing staff
[2020-03-26] MEDS ORDERED: Metoprolol Tartrate 25 MG TAB PO SCH (12:00)
--- NOTE | 2020-03-26 13:48 | PRG ---
DATE OF SERVICE: 03/26/2020 SUBJECTIVE: Ms. Rodriguez apparently had seizures on and off all night. Fortunately, she was connected to an EEG machine which did not show any epileptiform discharges. She will be awakened and extubated here, hopefully in the next 30 minutes. She has had no hemodynamic issues. OBJECTIVE: LUNGS: Unchanged. HEART: Unchanged. ABDOMEN: Unchanged. IMPRESSION: Pseudoseizures/conversion disorder. PLAN: Extubation and stable transfer out of critical care. Critical care time 30 min. Job ID: [id number] MTDD
[2020-03-26] MEDS: levETIRAcetam in NS 500 MG in Premix Bag 1 BAG IVPB SCH (21:25)
[2020-03-26] MEDS: Metoprolol Tartrate 25 MG TAB PO SCH (21:25)
[2020-03-26] MEDS: Calcium Carbonate 500 MG ChewTAB PO PRN (21:32)
[2020-03-27 05:07] VITALS: BMI 32.4
--- NOTE | 2020-03-27 07:46 | PDOC.FM ---
- Subjective Subjective: Patient seen at bedside this morning. She was successfully extubated yesterday afternoon and transferred to medical floor. EEG did not show any seizure activity. Patient having pseudoseizures during this hospitalization. Her home metoprolol has been restarted and heart rate down in the 90s this morning. Patient states she slept well overnight, desire to go home this morning. She has an appt for f/u with her MFM on Apr 08, is calling this morning to rescheduled her OB appt. She has an appt with her PCP at [facility] in [place], [place] next week. She denies any complaints this morning. - Objective MAR Reviewed: Yes Vital Signs & Weight: Vital Signs (12 hours) Temp Pulse Resp BP Pulse Ox 03/27/20 07:39 98.5 F 82 16 104/68 98 03/27/20 04:00 98.4 F 94 14 93/56 L 98 03/27/20 00:00 98.1 F 101 H 16 102/60 97 03/26/20 20:00 98 03/26/20 19:59 98.4 F 112 H 14 102/63 98 Weight Admit Weight 84.899 kg Weight 91.172 kg Most Recent Monitor Data Heart Rate from ECG 97 NIBP 105/51 NIBP BP-Mean 69 Respiration from ECG 17 SpO2 100 I&O: 03/26/20 03/27/20 03/28/20 06:59 06:59 06:59 Intake Total 2219 1041 Output Total 2995 940 Balance -776 101 Result Diagrams: 03/24/20 20:01 03/24/20 20:01 Phys Exam - Physical Examination Constitutional: NAD HEENT: moist MMs, sclera anicteric Neck: no JVD, supple, full ROM Respiratory: clear to auscultation bilateral Cardiovascular: RRR Gastrointestinal: no distention Musculoskeletal: no edema Neurological: normal sensation, moves all 4 limbs Psychiatric: normal affect, A&O x 3 Skin: no rash Dx/Plan (1) Pseudoseizures Code(s): F44.5 - CONVERSION DISORDER WITH SEIZURES OR CONVULSIONS Status: Acute (2) Status epilepticus Code(s): G40.901 - EPILEPSY, UNSP, NOT INTRACTABLE, WITH STATUS EPILEPTICUS Status: Resolved (3) Second trimester Code(s): Z34.92 - ENCNTR FOR SUPRVSN OF NORMAL PREG, UNSP, SECOND TRIMESTER Status: Acute (4) POTS (postural orthostatic tachycardia syndrome) Code(s): I49.8 - OTHER SPECIFIED CARDIAC ARRHYTHMIAS Status: Acute (5) Sinus tachycardia Code(s): R00.0 - TACHYCARDIA, UNSPECIFIED Status: Acute - Plan Plan: Pseudoseizures - continuous EEG monitoring during multiple episodes of seizure-like activity did not show any signs of seizure, patient diagnosed with Pseudoseizures and was successfully extubated on 03/26, transitioned to medical floor - does have hx of epilepsy and follows with Dr. Boswell, neurologist in [place], will continue Keppra at lower dose due to this - multiple seizures with CODE green on 03/25--see earlier event note - s/p recurrent seizures overnight 03/24-03/25 requiring propofol sedation and intubation -previously intubated on 03/23 in ED with extubation later on 03/23 -intubated 03/25-03/26 with extubation in afternoon of 03/26 - Keppra 1000 mg BID home dose - Fosphenytoin 1000 mg x 1 on 03/25 - Neuro consulted--Dr. Christensen, appreciate recs - Pulm consulted for CCU admission--Dr. Connor, appreciate recs sIUP in Second Trimester - 16.4 wk by elyse with NILAM of 09/07/2020 - folic acid 5mg daily - assembler show motor consulted--Dr. Riley, appreciate recs - medications Metoprolol, Sertraline, and Keppra all category C in , no evidence for adverse or teratogenic effects to fetus in studies POTS (Postural Orthostatic Tachycardia Syndrome) -aware Hx of SVT - seen in ED along with seizure like activity, has had sinus tachycardia since CODE status: FULL Diet: Regular VTE: SCDs GI PPx: Protonix PCP: none Dispo: Stable admitted to inpatient in medical unit. Anticipate discharge home later today. Addendum - Attending - Attending Attestation Date/Time: 03/27/20 [id number] I personally evaluated the patient and discussed the management with Dr. Velez. I agree with the History, Examination, Assessment and Plan documented above with any addition or exceptions noted below.
[2020-03-27] MEDS: Pantoprazole 40 MG VIAL IVP SCH (08:59)
[2020-03-27] MEDS: Folic Acid 1 MG TAB PO SCH (09:00)
[2020-03-27] MEDS: Metoprolol Tartrate 25 MG TAB PO SCH (09:00)
[2020-03-27] MEDS ORDERED: Prenatal Vitamin 1 TAB PO SCH (09:00)
[2020-03-27] MEDS: Calcium Carbonate 500 MG ChewTAB PO PRN (09:03)
[2020-03-27] MEDS: levETIRAcetam in NS 500 MG in Premix Bag 1 BAG IVPB SCH (10:02)
--- NOTE | 2020-03-27 11:12 | DIS ---
DATE OF ADMISSION: 03/23/2020 DATE OF DISCHARGE: 03/27/2020 RESIDENT: Susan Velez DO. ADMITTING ATTENDING: Pako Fine MD. DISCHARGE ATTENDING: Torrey Baxter MD. CONSULTS: 1. Dr. Christensen with Neurology. 2. Dr. Riley with [facility]. 3. Dr. Connor with Pulmonology. PROCEDURES: 1. ultrasound on March 23, 2020: Single live intrauterine gestation with gestational age of 16 weeks and 0 days with estimated due date of September 07, 2020. heart rate 143 BPM. Anterior placenta. No evidence for previa. Cervical length not well seen. NITIN qualitatively normal appearing. 2. EEG on March 23, 2020: Moderate generalized nonspecific cerebral dysfunction. 3. Chest x-ray on March 25, 2020: Appropriate position of lines and endotracheal tube. Otherwise, no acute process. 4. Continuous EEG from March 25 to March 26, 2020: EEG is consistent with moderate generalized nonspecific cerebral dysfunction. The spells of seizure-like activity captured during this recording were not associated with abnormal EEG correlate and therefore are nonepileptic in nature. Diagnosis of psychogenic nonepileptic seizures. 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 SECONDARY DIAGNOSES: 1. Single intrauterine , in second trimester at 16 weeks' gestation. 2. Postural orthostatic tachycardia syndrome. 3. History of supraventricular tachycardia. 4. History of sick sinus syndrome. 5. History of epilepsy. 6. Conversion disorder, likely. DISCHARGE MEDICATIONS: 1. Vitafol capsules, one capsule p.o. daily. 2. Folic acid 4 mg p.o. daily. 3. Keppra 1000 mg p.o. b.i.d. 4. Zofran 4 mg p.o. q.6 hours p.r.n. 5. Metoprolol tartrate 25 mg p.o. b.i.d. 6. Sertraline 50 mg p.o. daily. Discontinued medications; 1. Diazepam 5 mg p.o. b.i.d. p.r.n. 2. Trileptal 900 mg p.o. b.i.d. 3. Seroquel 25 mg p.o. at bedtime p.r.n. for insomnia. 4. Trazodone 50 mg p.o. at bedtime p.r.n. for insomnia. HISTORY OF PRESENT ILLNESS/HOSPITAL COURSE: The patient is a 19-year-old female, who presented to [facility] as a transfer from the [facility] for reported status epilepticus. She had initially reported to that emergency department due to COVID like symptoms and was tested for this and was negative. However, while she was in the emergency department, she reportedly had greater than 20 seizures and became hypoxic into the 70s during these episodes. Because of the hypoxia, the patient was intubated and sedated at that time. The patient has a history of seizures and a history of epilepsy and has had multiple admissions for this at this facility and at [facility] in [place], [place]. The patient is established with Dr. Boswell in [place], [place], who is her neurologist and has had multiple EEGs in the past. The patient is on antiepileptics, Keppra 1000 mg b.i.d. at home. However, since she is 16 weeks' , she had reportedly taken herself off her seizure medications for the past 6 months. During her seizure activity, the patient's heart rate went into the 120s to 160s and the patient was at times given IV metoprolol for this. The patient also has a history of going into SVT, although was not seen during this hospitalization. The patient was transferred to [facility] for admission to inpatient to the CCU for suspected status epilepticus. She was initially intubated and sedated on propofol. The patient was given multiple rounds of lorazepam, Keppra, and one dose of fosphenytoin on March 23, 2020. The patient was later extubated on the evening of March 23, 2020. She did well throughout the day on March 24, but then on the doctor of dental surgery around 3 a.m. on March 25, the patient went into continuous seizure-like activity episodes, again became hypoxic into the upper 70s. The patient had to be re-intubated on the morning of March 25, 2020. She required propofol sedation up to a max of 50 mcg/minute and was still having seizure-like activity at this dosing. Her seizures were described as right and left arm jerking with eye twitching. In between seizure episodes, the patient at times had altered mental status and at other times was directly back to baseline. The patient had a continuous EEG from March 25 to March 26 for an approximate 36-hour period while intubated. During this EEG, there was no evidence for seizures and the patient was diagnosed with pseudoseizures (psychogenic nonepileptic seizures). The patient was successfully extubated on March 26, 2020. The patient was feeling well and desired to go home. She has followup with her MFM, [facility] on April 08, 2020. She is calling to reschedule her regular [facility] appointment for next week. She also has an appointment next week with her PCP at [facility] in [place], [place]. The patient's home metoprolol was restarted and her heart rate has been steadily in the 90s. The patient was discharged to home on the morning of March 27, 2020, in stable condition. DISPOSITION: Stable. DISCHARGE INSTRUCTIONS: 1. Location: Home. 2. Diet: Regular. 3. Activity as tolerated, recommend no driving until followup with outpatient Neurology. 4. Follow up with Dr. Christensen, neurologist in 14 days. 5. Follow up with PCP at [facility] in [place], [place] in 7 days. 6. Follow up with [facility] and Maternal- Medicine as previously scheduled on April 08, 2020. Job ID: [id number]
[2020-03-27 11:29] VITALS: BP 121/75; TEMP 98.4
--- NOTE | 2020-03-29 02:30 | PQF ---
CLINICAL DOCUMENTATION CLARIFICATION FORM: Dear : Torrey Baxter Date / Time: 03/29/2020 0230 Please exercise your independent, professional judgment in responding to the clarification form. Clinical indicators are provided on the bottom of this form for your review Please check appropriate box(es): [ x ] Acute Respiratory Failure with Hypoxia [ ] Acute Respiratory Failure with Hypercapnia [ ] Hypoxia [ ] Other diagnosis [ ] Unable to determine In addition, please specify: Present on Admission (POA): [x ] Yes [ ] No [ ] Unable to determine Physician Signature: Date/Time: For continuity of documentation, please document condition throughout progress notes and discharge summary. Thank You. To be completed by CDI/Coding staff for physician review: Present Clinical Indicators - Signs / Symptoms / Labs Results and Location in Medical Record [x] PH7.40, pCO2 32.0, pO2 55.9, O2sat 89%, O2 content 12.7, Base Excess-4.9 ABG 03/25 [x] O2 sat 99%; 97%; 95%; 97 Vital signs 03/23-03/26 [x] BP 140/86, Pulse 100, Resp 15 Vital signs 03/23 [x] reportedly great than 20 seizures and had become hypoxic H&P p1 03/23 Dr Ortiz [x] status epilepticus s/p intubated and sedated H&P p3 03/23 Dr Ortiz [x] Vent dependent H&P p4 03/23 Dr Ortiz Present Risk Factors Results and Location in Medical Record [x] 16 weeks intrauterine H&P p1 03/23 Dr Ortiz [x] Seizure disorder H&P p1 03/23 Dr Ortiz [x] SVT H&P p1 03/23 Dr Ortiz [ ] Present Treatments Results and Location in Medical Record [x] Mechanical ventilator Respiratory panel 03/23 [x] Pulmo consult H&P p4 03/23 Dr Ortiz [x] Admitted to ICU H&P p4 03/23 Dr Ortiz CDS/[employer] Super[employer] Signature: Heather Lopez Phone #: [phone] Date/Time: 03/29/20 0230 Acute Respiratory Failure: ABG pH < 7.35 or > 7.45; Decreased oxygen saturation (<90% room air or < 95% on oxygen); PCO2 > 50 mm Hg; PO2 < 60 mm Hg; Labored or rapid respirations ARDS: Dx Criteria [[place] ARDS]: Respiratory symptoms within one week of a known clinical insult (e.g. shock, infection, surgery, trauma) Bilateral opacities in CXR/Chest CT not due to CHF or fluid This is a permanent part of the Medical Record MTDD
== END 2020-03-27 12:29 | disposition home or self-care (01) | DRG 831 ==
LOC: CCU 05:39 → 2NO 03-24 17:02 → CCU 03-25 03:02 → T4-A 03-26 17:18 → CCU 03-26 17:47 → T4-A 03-26 17:48
PROVIDERS: ADMIT Emergency Medicine; ATTEND Family Medicine
PROC: 5A1935Z Respiratory Ventilation, Less than 24 Consecutive Hours (ICD-10-PCS; 2020-03-23)
PROC: 5A1945Z Respiratory Ventilation, 24-96 Consecutive Hours (ICD-10-PCS; principal; 2020-03-25)
PROC: 0BH17EZ Insertion of Endotracheal Airway into Trachea, Via Natural or Artificial Opening (ICD-10-PCS; 2020-03-25)
DX: O99.352 Diseases of the nervous system complicating pregnancy, second trimester (principal); J96.01 Acute respiratory failure with hypoxia; I47.1 Supraventricular tachycardia; I49.5 Sick sinus syndrome; F44.5 Conversion disorder with seizures or convulsions; I49.8 Other specified cardiac arrhythmias; G40.901 Epilepsy, unspecified, not intractable, with status epilepticus; O99.342 Other mental disorders complicating pregnancy, second trimester; O99.512 Diseases of the respiratory system complicating pregnancy, second trimester; O99.412 Diseases of the circulatory system complicating pregnancy, second trimester; O26.22 Pregnancy care for patient with recurrent pregnancy loss, second trimester; T42.6X6A Underdosing of other antiepileptic and sedative-hypnotic drugs, initial encounter; Z3A.16 16 weeks gestation of pregnancy; Z20.822 Contact with and (suspected) exposure to COVID-19; Z91.040 Latex allergy status; Z88.8 Allergy status to other drugs, medicaments and biological substances; Z91.018 Allergy to other foods; Z91.09 Other allergy status, other than to drugs and biological substances; Z79.899 Other long term (current) drug therapy; Z78.1 Physical restraint status; Z88.1 Allergy status to other antibiotic agents; Z91.128 Patient's intentional underdosing of medication regimen for other reason
CPT/HCPCS: 36415; 36416; 36600; 71045; 76805; 80053; 80177; 80306; 82805; 83735; 84100; 84146; 84443; 85007; 85027; 93005; 93010; 94002; 94003; 95712; 95715; 95816; 95819; 95957; C9113; J1953; J2060; J2405; J2704; J3490; Q0162; Q2009